=== PATIENT | female | born 1940 | race Caucasian/White ===

== ENCOUNTER 2021-02-12 10:08 | Outpatient (REF) | payer MEDICARE, SELFPAY ==
[2021-02-12 13:28] LABS: MANUAL DIFF FLAG NO
[2021-02-12 13:35] LABS: Basophils Absolute Auto 0.1 X10*3/uL (0.0-0.2); Basophils Percent Auto 1.4 % (0-2); Eosinophils Absolute Auto 0.3 X10*3/uL (0.0-0.4); Hematocrit 39.1 % (37-47); Hemoglobin 13.1 g/dl (12.0-16.0); Imm Gran Abs Auto 0.02 X10*3/uL (0.00-0.03); Imm Gran Pct Auto 0.4 % (0.0-0.4); Lymphocytes Absolute Auto 1.9 X10*3/uL (1.2-4.9); Lymphocytes Percent Auto 33.7 % (20-40); Mean Corpuscular HGB Conc 33.5 g/dl (31.0-35.0); Mean Corpuscular Hemoglobin 32.9 pg (27.0-33.0); Mean Corpuscular Volume 98.2 fL (80-98); Mean Platelet Volume 10.3 fL (9.4-12.3); Monocytes Absolute Auto 0.7 X10*3/uL (0.1-1.2); Monocytes Percent Auto 13.1 % (2-11); Neutrophils Absolute Auto 2.6 X10*3/uL (2.0-8.3); Neutrophils Percent Auto 46.4 % (45-73); Platelet Count 310 X10*3/uL (160-400); Red Blood Count 3.98 X10*6/uL (4.20-5.50); White Blood Count 5.6 X10*3/uL (4.8-10.8)
[2021-02-12 13:52] LABS: Alanine Aminotransferase 11 U/L (0-31); Albumin Level 3.9 g/dL (3.5-5.0); Alkaline Phosphatase 58 U/L (39-117); Anion Gap 11 (12-20); Aspartate Amino Transferase 20 U/L (5-31); Bilirubin Total 0.8 mg/dL (0.0-1.0); Blood Urea Nitrogen 19 mg/dL (9-16); Calcium 9.5 mg/dL (8.4-10.2); Carbon Dioxide 28 mmol/L (22-29); Chloride 102 mmol/L (96-108); Cholesterol 256 mg/dL; Estimated Glomerular Filt Rate 60; Glucose Fasting 87 mg/dL (60-99); HDL Cholesterol 97 mg/dL; LDL Cholesterol Calculated 143 mg/dl; Potassium 4.6 mmol/L (3.3-5.1); Sodium 136 mmol/L (135-145); Total Protein 6.1 g/dL (6.5-8.0); Triglycerides 80 mg/dL
[2021-02-12 14:09] LABS: Vitamin D 25-OH Total 18.6 ng/mL (>30)
== END 2021-02-12 10:09 | disposition home or self-care (01) ==
LOC: HO.10HDL 10:08
PROVIDERS: PCP Internal Medicine; Visit Provider Internal Medicine
DX: I10 Essential (primary) hypertension (principal); M19.90 Unspecified osteoarthritis, unspecified site; E78.00 Pure hypercholesterolemia, unspecified; Z96.653 Presence of artificial knee joint, bilateral
CPT/HCPCS: 36415; 80053; 80061; 82306; 85025

== ENCOUNTER 2021-05-07 11:25 | Outpatient (REF) | payer MEDICARE, SELFPAY ==
--- NOTE | ~2021-05-07 | MM_ITS ---
EXAMINATION: MM SCREENING DIGITAL BREAST TOMOSYNTHESIS, BILATERAL CLINICAL INFORMATION: Screening. Asymptomatic. The lifetime risk of breast cancer based on the Tyrer-Cuzick Model is 0.8%. COMPARISON: Mammography: March 05, 2020 and studies dating back to July 30, 2011 TECHNIQUE: Digital breast tomosynthesis is performed in both the craniocaudal and mediolateral oblique views along with computer-aided detection (CAD). Synthesized 2D images are generated from the tomosynthesis. FINDINGS: There are scattered areas of fibroglandular density (ACR BI-RADS breast composition Category b). There are no significant masses, abnormal calcifications, or other abnormalities. MM/MM tomosynthesis screening BI IMPRESSION: There are no significant changes from prior study. ASSESSMENT: BI-RADS 1: Negative RECOMMENDATION: Routine annual mammography screening. This patient's information was entered into a reminder system with a target due date for their next mammogram.
== END 2021-05-07 11:26 | disposition home or self-care (01) ==
LOC: HO.MAMMO 11:25
PROVIDERS: Visit Provider Internal Medicine
DX: Z12.31 Encounter for screening mammogram for malignant neoplasm of breast (principal)
CPT/HCPCS: 77063; 77067

== ENCOUNTER 2021-06-04 12:58 | Outpatient (RCR) | payer MEDICARE, SELFPAY | END 2021-06-22 11:08 | disposition home or self-care (01) | LOC: HO.WCC 12:58 | PROVIDERS: PCP Internal Medicine; Visit Provider Surgery | DX: L89.893 Pressure ulcer of other site, stage 3 (principal); I10 Essential (primary) hypertension; Z87.891 Personal history of nicotine dependence | CPT/HCPCS: 99212; 99213 ==

== ENCOUNTER 2021-12-02 11:15 | Outpatient (REF) | payer MEDICARE, SELFPAY ==
[2021-12-02 13:23] LABS: Anion Gap 14 (12-20); Blood Urea Nitrogen 21 mg/dL (9-16); Calcium 9.9 mg/dL (8.4-10.2); Carbon Dioxide 24 mmol/L (22-29); Chloride 101 mmol/L (96-108); Estimated Glomerular Filt Rate > 60; Glucose Random 92 mg/dL (60-115); Potassium 4.7 mmol/L (3.3-5.1); Sodium 134 mmol/L (135-145)
[2021-12-02 13:47] LABS: Vitamin D 25-OH Total 24.3 ng/mL (>30)
== END 2021-12-02 11:16 | disposition home or self-care (01) ==
LOC: HO.10HDL 11:15
PROVIDERS: Visit Provider Internal Medicine
DX: I10 Essential (primary) hypertension (principal); E55.9 Vitamin D deficiency, unspecified
CPT/HCPCS: 36415; 80048; 82306

== ENCOUNTER 2022-05-18 10:59 | Outpatient (REF) | payer MEDICARE, SELFPAY ==
--- NOTE | ~2022-05-18 | MM_ITS ---
EXAMINATION: MM SCREENING DIGITAL BREAST TOMOSYNTHESIS, BILATERAL CLINICAL INFORMATION: Screening. Asymptomatic. The lifetime risk of breast cancer based on the Tyrer-Cuzick Model is 1%. COMPARISON: Mammography: 05/07/2021, 03/23/2020, 09/13/2018 TECHNIQUE: Digital breast tomosynthesis is performed in both the craniocaudal and mediolateral oblique views along with computer-aided detection (CAD). Synthesized 2D images are generated from the tomosynthesis. FINDINGS: There are scattered areas of fibroglandular density (ACR BI-RADS breast composition Category b). There are no significant masses, abnormal calcifications, or other abnormalities. Parenchymal pattern is similar to prior studies. There is no developing density or architectural abnormality. The axilla and skin contours are unremarkable. No significant changes. MM/MM tomosynthesis screening BI IMPRESSION: No mammographic evidence of malignancy. ASSESSMENT: BI-RADS 1: Negative RECOMMENDATION: Routine annual mammography screening. This patient's information was entered into a reminder system with a target due date for their next mammogram.
== END 2022-05-18 11:00 | disposition home or self-care (01) ==
LOC: HO.MAMMO 10:59
PROVIDERS: PCP Internal Medicine; Visit Provider Internal Medicine
DX: Z12.31 Encounter for screening mammogram for malignant neoplasm of breast (principal)
CPT/HCPCS: 77063; 77067

== ENCOUNTER 2022-07-30 13:42 | Outpatient (REF) | payer MEDICARE, SELFPAY ==
--- NOTE | ~2022-07-30 | XR_ITS ---
EXAMINATION: XR KNEE, LEFT CLINICAL INFORMATION: Pain; question dislodged screw. COMPARISON: Radiograph dated 02/15/2018. TECHNIQUE: AP, lateral, tunnel, and sunrise views of the left knee. 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 No component migration. No joint effusion. XR/XR knee LT 4V IMPRESSION: Appropriate alignment of the left total knee arthroplasty without evidence of complications. No hardware failure or loosening is seen. The appearance is stable from 02/15/2018.
== END 2022-07-30 13:43 | disposition home or self-care (01) ==
LOC: HO.XRAY 13:42
PROVIDERS: PCP Internal Medicine; Visit Provider Internal Medicine
DX: I10 Essential (primary) hypertension (principal); M25.562 Pain in left knee
CPT/HCPCS: 73564

== ENCOUNTER 2023-02-22 11:46 | Outpatient (REF) | payer MEDICARE, SELFPAY ==
[2023-02-22 13:18] LABS: MANUAL DIFF FLAG NO
[2023-02-22 13:22] LABS: Basophils Absolute Auto 0.1 X10*3/uL (0.0-0.2); Basophils Percent Auto 1.7 % (0-2); Eosinophils Absolute Auto 0.3 X10*3/uL (0.0-0.4); Eosinophils Percent Auto 3.8 % (0-4); Hematocrit 39.9 % (37.0-47.0); Hemoglobin 13.6 g/dl (12.0-16.0); Imm Gran Abs Auto 0.01 X10*3/uL (0.00-0.03); Imm Gran Pct Auto 0.1 % (0.0-0.4); Lymphocytes Absolute Auto 3.3 X10*3/uL (1.2-4.9); Lymphocytes Percent Auto 47.4 % (20-40); Mean Corpuscular HGB Conc 34.1 g/dl (31.0-35.0); Mean Corpuscular Hemoglobin 33.1 pg (27.0-33.0); Mean Corpuscular Volume 97.1 fL (80.0-98.0); Mean Platelet Volume 10.6 fL (9.4-12.3); Monocytes Absolute Auto 0.7 X10*3/uL (0.1-1.2); Monocytes Percent Auto 10.4 % (2-11); Neutrophils Absolute Auto 2.6 x10*3/uL (2.0-8.3); Neutrophils Percent Auto 36.6 % (45-73); Platelet Count 294 X10*3/uL (160-400); Red Blood Count 4.11 X10*6/uL (4.20-5.50); Red Cell Distribution Width 13.5 % (11.0-16.0)
[2023-02-22 13:41] LABS: Alanine Aminotransferase 9 U/L (0-31); Albumin Level 3.8 g/dL (3.5-5.0); Alkaline Phosphatase 65 U/L (39-117); Anion Gap 10 (12-20); Aspartate Amino Transferase 21 U/L (5-31); Bilirubin Total 0.8 mg/dL (0.0-1.0); Blood Urea Nitrogen 15 mg/dL (9-16); Calcium 9.4 mg/dL (8.4-10.2); Carbon Dioxide 26 mmol/L (22-29); Chloride 103 mmol/L (96-108); Cholesterol 254 mg/dL (<200); Estimated Glomerular Filt Rate > 60; Glucose Fasting 89 mg/dL (60-99); HDL Cholesterol 103 mg/dL (>40); LDL Cholesterol Calculated 137 mg/dL (<100); Sodium 135 mmol/L (135-145); Total Protein 6.3 g/dL (6.5-8.0); Triglycerides 72 mg/dL (<150)
[2023-02-22 13:58] LABS: Vitamin D 25-OH Total 46.3 ng/mL (>30)
== END 2023-02-22 11:47 | disposition home or self-care (01) ==
LOC: HO.10HDL 11:46
PROVIDERS: Visit Provider Internal Medicine
DX: I10 Essential (primary) hypertension (principal); E78.00 Pure hypercholesterolemia, unspecified; E55.9 Vitamin D deficiency, unspecified
CPT/HCPCS: 36415; 80053; 80061; 82306; 85025

== ENCOUNTER 2023-05-30 13:15 | Outpatient (REF) | payer MEDICARE, SELFPAY ==
[2023-05-30 13:56] LABS: Influenza A PCR NEGATIVE (Negative); Influenza B PCR NEGATIVE (Negative); Resp Syncy Virus RNA Qual PCR NEGATIVE (Negative); SARS COV2 PCR INHOUSE NEGATIVE (Negative)
== END 2023-05-30 13:16 | disposition home or self-care (01) ==
LOC: HO.LNP 13:15
PROVIDERS: Visit Provider Internal Medicine
DX: R05.9 Cough, unspecified (principal); R50.9 Fever, unspecified; Z11.52 Encounter for screening for COVID-19
CPT/HCPCS: 0241U

== ENCOUNTER 2023-06-01 14:14 | Outpatient (REF) | payer MEDICARE, SELFPAY ==
--- NOTE | ~2023-06-01 | XR_ITS ---
EXAMINATION: XR CHEST CLINICAL INFORMATION: Cough COMPARISON: 07/31/2015 TECHNIQUE: 2 views of the chest were obtained. FINDINGS: Lungs are well expanded with mild flattening of the diaphragm secondary to emphysematous changes without nodules infiltrates or pleural effusion. Cardiomediastinal silhouette is unremarkable and there is moderate size hiatal hernia. XR/XR chest 2V IMPRESSION: No active cardiopulmonary disease. Emphysema and hiatal hernia
== END 2023-06-01 14:15 | disposition home or self-care (01) ==
LOC: HO.XRAY 14:14
PROVIDERS: PCP Internal Medicine; Visit Provider Internal Medicine
DX: R05.9 Cough, unspecified (principal); I10 Essential (primary) hypertension
CPT/HCPCS: 71046

== ENCOUNTER 2024-08-27 11:43 | Outpatient (REF) | payer MEDICARE, SELFPAY ==
[2024-08-27 12:58] LABS: MANUAL DIFF FLAG NO
[2024-08-27 13:03] LABS: Basophils Absolute Auto 0.1 X10*3/uL (0.0-0.2); Basophils Percent Auto 1.4 % (0-2); Eosinophils Absolute Auto 0.5 X10*3/uL (0.0-0.4); Eosinophils Percent Auto 5.7 % (0-4); Hematocrit 40.4 % (37.0-47.0); Hemoglobin 13.6 g/dl (12.0-16.0); Imm Gran Abs Auto 0.01 X10*3/uL (0.00-0.03); Imm Gran Pct Auto 0.1 % (0.0-0.4); Lymphocytes Absolute Auto 4.3 X10*3/uL (1.2-4.9); Lymphocytes Percent Auto 51.3 % (20-40); Mean Corpuscular HGB Conc 33.7 g/dl (31.0-35.0); Mean Corpuscular Hemoglobin 33.2 pg (27.0-33.0); Mean Corpuscular Volume 98.5 fL (80.0-98.0); Mean Platelet Volume 10.2 fL (9.4-12.3); Monocytes Absolute Auto 0.9 X10*3/uL (0.1-1.2); Monocytes Percent Auto 10.1 % (2-11); Neutrophils Absolute Auto 2.6 x10*3/uL (2.0-8.3); Neutrophils Percent Auto 31.4 % (45-73); Platelet Count 281 X10*3/uL (160-400); Red Cell Distribution Width 12.9 % (11.0-16.0); White Blood Count 8.4 X10*3/uL (4.8-10.8)
[2024-08-27 13:30] LABS: Alanine Aminotransferase 12 U/L (0-31); Albumin Level 3.8 g/dL (3.5-5.0); Alkaline Phosphatase 73 U/L (39-117); Anion Gap 10 (12-20); Aspartate Amino Transferase 28 U/L (5-31); Bilirubin Total 0.7 mg/dL (0.0-1.0); Blood Urea Nitrogen 16 mg/dL (9-16); Calcium 8.9 mg/dL (8.4-10.2); Carbon Dioxide 28 mmol/L (22-29); Chloride 101 mmol/L (96-108); Cholesterol 255 mg/dL (<200); Estimated Glomerular Filt Rate > 60; Glucose Fasting 88 mg/dL (60-99); HDL Cholesterol 102 mg/dL (>40); LDL Cholesterol Calculated 135 mg/dL (<100); Sodium 135 mmol/L (135-145); Total Protein 6.5 g/dL (6.5-8.0); Triglycerides 90 mg/dL (<150)
--- OUTSIDE RECORDS SUMMARY | 2024-08-27 13:34 | XMS_ITS | Patient Health Record ---
Author Organization [facility] Address [address] [place] [address] Care Team Providers Care Java Security Architect Name Role Phone Dipak Tinsley MD Primary Care Provider Unavaila Anna Marie Alcala Unavailable [phone] Curly Baer Unavailable [phone] Allergies No Known Allergies Reason For Referral No Information Medications Medication SIG (Take, Route, Frequency, Duration) Notes Start Date End Date Status Metoprolol Succinate ER 50 MG Oral for 90 Active Lisinopril 10 MG Oral for 90 A ctive Custom Orthotics as directed A ctive Advil as needed Active AFO-fixed . 1 . Wear daily for . 08/03/2017 Not-Taking LORazepam 1 MG (Schedule IV Drug) Oral for 30 Active Doxycycline Monohydrate 100 MG 1 capsule Orally Once a day for 10 days 06/03/2021 Not-Taking Immunizations Vaccine Route Administration Date Status Comme nts COVID-19 Pfizer BioNTech Vaccine Unknown 04/20/2021 Administered 1at 07/03/2021 2nd 07/25/2020 Influenza Unknown 05/20/2021 Refused Social History Tobacco Use: Social History Observation Description Date Details (start date - stop date) Never Smoker NA - NA Tobacco use other than smoking: Question Answer Notes Are you an other tobacco user? No Tobacco Control (Standard) Question Answer Notes Tobacco use: Nonsmoker Additional Findings: Tobacco non-user Current no nsmoker AUDIT-C (Standard) Question Answer Notes Did you have a drink containing alcohol in the p ast year? No Points 0 Interpretation Negative Problems Problem Type SNOMED Code ICD Code Onset Dates Problem Status W/U Status Risk Notes Problem Non-pressure chronic ulcer of other part of right foot with fat layer exposed (L97.512) Active confirmed Problem Chronic ulcer of foot (057097258) Non-pressure chronic ulcer of other part of left foot with fat layer exposed (L97.522) Active confirmed Problem Localized, primary osteoarthritis of the ankle and/or foot (920813764) Primary osteoarthritis, right ankle and foot (M19.071) Active confirmed Problem Localized, primary osteoarthritis of the ankle and/or foot () Primary osteoarthritis, left ankle and foot (M19.072) Active confirmed Problem Unspecified atherosclerosis of [place] arteries of extremities, bilateral legs (I70.203) Active confirmed Problem Acquired hammer toe of left foot (5077578867576221 ) Other hammer toe(s) (acquired), left foot (M20.42) Active confirmed Problem Atherosclerosis of [place] artery of both lower extremities, with unspecified presence of clinical manifestation (I70.203) Active confirmed Q7(A), Q8(2B), Q9(1B,2 C) Vital Signs Blood pressure diastolic 80 mm Hg 07/16/2024 Height 5 ft 4 in in 07/16/2024 Blood pressure systolic 130 mm Hg 07/16/2024 Weight 105 lbs 07/16/2024 BMI 18.02 kg/m2 07/16/2024 Procedures Procedure Date Ordered Date Performed Result Body Sit e 09448-LBHX SKIN LESIONS, 2 TO 4 04/11/2024 N/A 59013-UWYTTBT NAIL, 6 OR MORE 07/16/2024 N/A 19003-SXVY SKIN LESIONS, OVER 4 07/16/2024 N/A Encounters Encounter Location Date Provider Diagnosis [facility] [address] [address] 10/24/2023 Curly Baer Pain in left toe(s) M79.675 ; Tinea unguium B35.1 ; Pain in right toe(s) M79.674 ; Primary osteoarthritis, left ankle and foot M19.072 ; Primary osteoarthritis, right ankle and foot M19.071 ; 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 ; Unspecified atherosclerosis of [place] arteries of extremities, bilateral legs I70.203 and Other hammer toe(s) (acquired), left foot M20.[address] [facility] [address] 01/18/2024 Curly Baer Pain in left toe(s) M79.675 ; Tinea unguium B35.1 ; Pain in right toe(s) M79.674 ; Primary osteoarthritis, left ankle and foot M19.072 ; Primary osteoarthritis, right ankle and foot M19.071 ; 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 ; Unspecified atherosclerosis of [place] arteries of extremities, bilateral legs I70.203 and Other hammer toe(s) (acquired), left foot M20.[address] [address] 04/11/2024 Curly Baer Pain in left toe(s) M79.675 ; Tinea unguium B35.1 ; Pain in right toe(s) M79.674 ; Primary osteoarthritis, left ankle and foot M19.072 ; Primary osteoarthritis, right ankle and foot M19.071 ; 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 ; Unspecified atherosclerosis of [place] arteries of extremities, bilateral legs I70.203 and Other hammer toe(s) (acquired), left foot M20.[address] [address] 07/16/2024 Anna Marie Monterroso Atherosclerosis of [place] artery of both lower extremities, with unspecified presence of clinical manifestation I70.203 ; Tinea unguium B35.1 ; Pain in right toe(s) M79.674 and Pain in left toe(s) M79.675 Assessments Encounter Date Diagnosis (ICD Code) Assessment Notes Treatment Notes Treatment Clinical Notes Section Notes 10/24/2023 Tinea unguium (ICD-10 - B35.1) 10/24/2023 Pain in left toe(s) (ICD-10 - M79.675) 01/18/2024 Pain in left toe(s) (ICD-10 - M79.675) 04/11/2024 Tinea unguium (ICD-10 - B35.1) 04/11/2024 Pain in left toe(s) (ICD-10 - M79.675) 07/16/2024 Atherosclerosis of [place] artery of both lower extremities, with unspecified presence of clinical manifestation (ICD-10 - I70.203) Q7(A), Q8(2B), Q9(1B,2C) 07/16/2024 Tinea unguium (ICD-10 - B35.1) 04/11/2024 Pain in right toe(s) (ICD-10 - M79.674) 01/18/2024 Tinea unguium (ICD-10 - B35.1) 10/24/2023 Pain in right toe(s) (ICD-10 - M79.674) 01/18/2024 Pain in right toe(s) (ICD-10 - M79.674) 10/24/2023 Primary osteoarthritis, left ankle and foot (ICD-10 - M19.072) 04/11/2024 Primary osteoarthritis, left ankle and foot (ICD-10 - M19.072) 07/16/2024 Pain in right toe(s) (ICD-10 - M79.674) 07/16/2024 Pain in left toe(s) (ICD-10 - M79.675) 04/11/2024 Primary osteoarthritis, right ankle and foot (ICD-10 - M19.071) 01/18/2024 Primary osteoarthritis, left ankle and foot (ICD-10 - M19.072) 10/24/2023 Primary osteoarthritis, right ankle and foot (ICD-10 - M19.071) 01/18/2024 Primary osteoarthritis, right ankle and foot (ICD-10 - M19.071) 10/24/2023 Dropfoot (ICD-10 - M21.379) 04/11/2024 Dropfoot (ICD-10 - M21.379) 04/11/2024 Unspecified atherosclerosis of [place] arteries of extremities, bilateral legs (ICD-10 - I70.203) 01/18/2024 Dropfoot (ICD-10 - M21.379) 10/24/2023 Unspecified atherosclerosis of [place] arteries of extremities, bilateral legs (ICD-10 - I70.203) 10/24/2023 Other hammer toe(s) (acquired), left foot (ICD-10 - M20.42) 01/18/2024 Unspecified atherosclerosis of [place] arteries of extremities, bilateral legs (ICD-10 - I70.203) 04/11/2024 Other hammer toe(s) (acquired), left foot (ICD-10 - M20.42) 01/18/2024 Other hammer toe(s) (acquired), left foot (ICD-10 - M20.42) Plan Of Treatment Pending Test Test Name Order Date X ray : Ankle, left 2V 07/08/2015 X ray : Foot, left 2V 07/08/2015 X ray : Foot, right 2V 07/08/2015 X ray : Foot, left 3V 06/03/2021 28211-UWMGYNY NAIL, 6 OR MORE 07/16/2024 15945-JDQEEHU NAIL, 6 OR MORE 08/03/2017 48126-MWAUMFQ NAIL, -5 03/16/2017 25939-HSXWGRR NAIL, -5 12/15/2016 97229-WBDORNK NAIL, -5 11/23/2017 07953-UBOEBCM NAIL, -5 02/22/2018 04056-VFIPSPC NAIL, -5 07/08/2015 20984-KMWQQOH NAIL, -5 09/17/2015 71027-AFYWCLL NAIL, -5 12/17/2015 03578-FWCSBFV NAIL, -5 03/17/2016 08493-VLAFGVJ NAIL, -5 06/16/2016 09354-RSSZLVV NAIL, -5 09/15/2016 91367-MYNWLGQ NAIL, -05/17/2018 77516-JXAZDQL SKIN/TISSUE 06/03/2021 40977-WZYRQMN SKIN/TISSUE 06/12/2021 15581-SVVN SKIN LESIONS, OVER 4 09/15/19 22 16604-VTPT SKIN LESIONS, OVER 4 11/20/19 21 30429-IYDL SKIN LESIONS, OVER 4 02/13/20 21 04632-UCZP SKIN LESIONS, OVER 4 07/16/19 25 39693-OVNU SKIN LESIONS, OVER 4 05/20/20 21 41107-UQVO SKIN LESIONS, OVER 4 01/13/20 23 83475-VWWP SKIN LESIONS, OVER 4 09/07/19 19 75013-KSRV SKIN LESIONS, OVER 4 02/01/20 19 69346-AXJH SKIN LESIONS, OVER 4 05/16/20 19 50617-PFFF SKIN LESIONS, OVER 4 08/29/19 20 42527-OVRO SKIN LESIONS, OVER 4 11/28/19 20 05760-QLIF SKIN LESIONS, OVER 4 02/27/20 20 86056-IMJB SKIN LESIONS, OVER 4 06/18/20 20 53581-QDTF SKIN LESIONS, OVER 4 09/11/19 21 33719-AJXR SKIN LESIONS, OVER 4 09/16/19 17 85779-UKJJ SKIN LESIONS, OVER 4 06/16/20 16 28034-BKHX SKIN LESIONS, OVER 4 03/17/20 16 99682-EFXQ SKIN LESIONS, OVER 4 12/17/19 16 10166-XADW SKIN LESIONS, OVER 4 02/23/20 18 59335-ELPZ SKIN LESIONS, OVER 4 05/17/20 18 47691-TJBG SKIN LESIONS, OVER 4 08/03/19 18 53233-MPZA SKIN LESIONS, OVER 4 11/24/19 18 08263-EJQC SKIN LESIONS, OVER 4 12/16/19 17 68210-PTGV SKIN LESIONS, OVER 4 03/16/20 17 05550-AYST SKIN LESIONS, 2 TO 4 09/17/19 16 17118-ZPKO SKIN LESIONS, 2 TO 4 07/08/19 16 06687-OPWA SKIN LESIONS, 2 TO 4 04/11/20 24 59289-EWQM NAIL(S) 07/08/2015 46767-EKFA NAIL(S) 09/17/2015 00770-QWFH NAIL(S) 12/17/2015 59542-AEPE NAIL(S) 03/17/2016 04755-WQRG NAIL(S) 06/16/2016 69390-ACKK NAIL(S) 09/15/2016 91480-YDLO NAIL(S) 12/15/2016 11308-GJLF NAIL(S) 03/16/2017 32514-DLHB NAIL(S) 08/03/2017 92945-NIBH NAIL(S) 11/23/2017 D8403-ZGXDXWAZ DYSTROPHIC NAILS ANY # M4642-UJYSXVGE DYSTROPHIC NAILS ANY # H9220-RSPESXZQ DYSTROPHIC NAILS ANY # X2612-WOGMBHDZ DYSTROPHIC NAILS ANY # V3999-FCIACOUG DYSTROPHIC NAILS ANY # V1824-NAKECRGZ DYSTROPHIC NAILS ANY # C8521-AMQQTSUF DYSTROPHIC NAILS ANY # K9760-FJAVJRRZ DYSTROPHIC NAILS ANY # F9315-NUHVTTJS DYSTROPHIC NAILS ANY # K0768-HUJXYAGT DYSTROPHIC NAILS ANY # N2676-YKGWULXE DYSTROPHIC NAILS ANY # U8338-NCJCBKWX DYSTROPHIC NAILS ANY # E2234-DUQEJRAU DYSTROPHIC NAILS ANY # Next Appt Details Provider Name:Anna Marie donaldson, 11/07/2024 02:45:00 PM, [address] [place], [address], Insurance Providers Payer Name Payer Address Payer Phone Subscriber Number Group Number Insured Name Patient Relationship to Insured Coverage Start Date Coverage End Date Medicare National [facility] [employer] [address] [facility] [place] [address] [id number] Geena German Self - patient is the insured 4 [employer] [address] [place] [address] [phone] [id number] Geena German Self - patient is the insured Medical (General) History Medical History History ICD Code Anxiety Arthritis Glaucoma High blood pressure Spina bifida Measles Mumps Chicken pox Joint implants/screws Surgical History Surgery Date(Month/Year) spine surgery - Spina Bifida 1941 knee surgery, left 2012 knee surgery, right 2012 left hip replacement 1996 hernia 07/31/2015 Hospitalization History Reason Date[place] [facility] [place] [facility] [place] head and broken ribs 05/2017
--- OUTSIDE RECORDS SUMMARY | 2024-08-27 13:34 | XMS_ITS ---
Author Organization [facility] Address [address] [place] [address] Care Team Providers Care Stable Cleaner Name Role Phone Dipak Tinsley MD Primary Care Provider UnavailAnna Marie Dudley Unavailable [phone] Curly Baer Unavailable [phone] Allergies No Known Allergies REASON FOR VISIT Painful thick toenails which are aggrevated by shoes and causes difficulty standing/walking Medications Medication SIG (Take, Route, Frequency, Duration) Notes Start Date End Date Status Advil as needed Active AFO-fixed . 1 . Wear daily for . 08/03/2017 Not-Taking Custom Orthotics as directed A ctive Metoprolol Succinate ER 50 MG Oral for 90 Active Lisinopril 10 MG Oral for 90 A ctive Doxycycline Monohydrate 100 MG 1 capsule Orally Once a day for 10 days 06/03/2021 Not-Taking LORazepam 1 MG (Schedule IV Drug) Oral for 30 Active Social History Tobacco Use: Social History Observation Description Date Details (start date - stop date) Former Smoker NA - NA Tobacco Use/Smoking Question Answer Notes Are you a: former smoker Additional Findings: Tobacco Non-User Current no n-smoker Alcohol Screen Question Answer Notes Did you have a drink contain ing alcohol in the past year? Yes How often did you have a dri nk containing alcohol in the past year? 4 or more times a week (4 points) Points 4 Interpretation Positive Tobacco use other than smoking: Question Answer Notes Are you an other tobacco user? No Vital Signs Height 5 ft 4 in in 04/11/2024 Weight 105 lbs 04/11/2024 BMI 18.02 kg/m2 04/11/2024 Blood pressure systolic 130 mm Hg 04/11/20 Blood pressure diastolic 80 mm Hg 024 Procedures Procedure Date Ordered Date Performed Result Body Sit e 96354-OILI SKIN LESIONS, 2 TO 4 04/11/2024 N/A Encounters Encounter Location Date Provider Diagnosis [facility] [address] [address] 04/11/2024 Curly Baer Pain in left toe(s) M79.675 ; Tinea unguium B35.1 ; Pain in right toe(s) M79.674 ; Primary osteoarthritis, left ankle and foot M19.072 ; Primary osteoarthritis, right ankle and foot M19.071 ; 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 ; Unspecified atherosclerosis of te-mo[place] arteries of extremities, bilateral legs I70.203 and Other hammer toe(s) (acquired), left foot M20.42 Assessments Encounter Date Diagnosis (ICD Code) Assessment Notes Treatment Notes Treatment Clinical Notes Section Notes 04/11/2024 Pain in left toe(s) (ICD-10 - M79.675) 04/11/2024 Tinea unguium (ICD-10 - B35.1) 04/11/2024 Pain in right toe(s) (ICD-10 - M79.674) 04/11/2024 Primary osteoarthritis, left ankle and foot (ICD-10 - M19.072) 04/11/2024 Primary osteoarthritis, right ankle and foot (ICD-10 - M19.071) 04/11/2024 Dropfoot (ICD-10 - M21.379) 04/11/2024 Unspecified atherosclerosis of te-moak arteries of extremities, bilateral legs (ICD-10 - I70.203) 04/11/2024 Other hammer toe(s) (acquired), left foot (ICD-10 - M20.42) Plan Of Treatment Medication Medication Name Sig Start Date Stop Date Notes Custom Orthotics as directed Pending Test Test Name Order Date 96944-EMBV SKIN LESIONS, 2 TO 4 04/11/20 24 Next Appt Details Follow Up: 2 Months, Reason: Provider Name:Anna Marie donaldson, 11/07/2024 02:45:00 PM, [address] [place] [address], [id number], Procedure Notes * Category Sub-Category Detail Notes Keratoma Treatment Parring or Cutting o f Benign Hyperkeratotic Lesion(s) 73037 ( >4 Lesions) - The Benign hyperkeratotic lesions, as described above were pared, and/or cut utilizing a sterile #15 blade, tissue nippers, and/or dremel, Q8 Debride Nails 1-5 Procedure: Nail debrideme nt performed extensively to reduce/remove overall nail length and girth, subungual debris, and necrotic tissue, by manual and electrical means by use of a nail nipper and/or dremel, to more viable healthy nail plate or bed tissue 1-5. Silver nitrate used for any petechial bleeding as necessary. Patient chooses, no pharmaceutical tx (40248) Nail Reduction Nail Reduction Trimming of dyst rophic nails performed to reduce/remove overall nail length and girth, by manual and electrical means with use of a nail nipper and/or dremel, to more viable healthy nail plate or bed tissue 6-10 (G0127) Progress Notes * Geena GERMAN GDOB:05/1941 (83 yo F)Acc No.[id number]:04/11/2024 Progress Note Patient:?Geena German Sunshine Provider:?Curly Baer DPM :1940???Age:83 Y???Sex:Female D ate:04/11/2024 Address:[address] [place], [place] [id number] Pcp:Dipak Tinsley MD Subjective: * Chief Complaints: * ???Painful thick toenails wh ich are aggrevated by shoes and causes difficulty standing/walking * HPI: ???Painful Nails:?Pt States Last PCP Visit:?Date:?12/03/2023 ???Toe pain:?Nature:?tenderness, aching.?Location:?Great toe, Left foot.?Duration:?several months.?Foot Pain:?Nature:?aching, sharp.?Location:?Bottom, Outside, Forefoot, LEFT.?Duration:?several years.?Course:?worse.?Aggravated:?any pressure, standing, walking.?Severity/Quality:?moderate, severe.? * ROS:?General/Constitutional:?Nausea?denies.?Vomiting?denies.?Hunger Thirst?denies.?Loss appetite?denies.?Chills?denies.?Fatigue?denies.?Fever?denies.?Night Sweats?denies.?Unexplained weight loss?denies.?Unexplained weight gain?denies.?HEENTM:?Dentures?denies.?Dizziness?denies.?Glasses/contacts?admits.?Retinopathy?de nies.?Blurred/double vision?denies.?TMJ?denies.?Discharge/drainage?denies.?Implants?denies.?Sore throat?denies.?Dental implants?denies.?Hard of hearing ?denies.?Difficulty chewing/swallowing/speaking?denies.?Nose bleeds?denies.?Sore mouth?denies.?Respiratory:?On Oxygen?denies.?Pneumonia/pleurisy?denies.?Bronchitis?denies.?Emphysema?denies.?C oughing?denies.?Cough blood?denies.?Shortness of breath?denies.?Wheezing?denies.?Cardiovascular:?Pacemaker?denies.?MVP?denies.?WPW?denies.?CHF?denies.?Heart attack?denies.?Septal defect?denies.?Rapid beat?denies.?Chest pain ?denies.?Atrial Fib.?denies.?Murmur/Palpitations?denies.?Gastrointestinal:?Hemorrhoids?denies.?Stomach/Abdominal pain?denies.?Dark blood stool?denies.?Irritable bowel ?denies.?Constipation?denies.?Diarrhea?denies.?Hematology:?Swelling?denies.?Clots?denies.?Varicose Veins?denies.?Bruising?denies.?Bleeding problem?denies.?Genitourinary:?Blood urine?denies.?Frequent/Painfu/urination/bladder control?denies.?Kidney stones?denies.?Infection (UTI)?denies.?Nephropathy?denies.?sex trans dis (STD)?denies.?Prostate?denies.?Musculoskeletal:?Hammertoes?admits.?Bunions?admits.?Back Pain?denies.?Muscle Cramps/ Resting?denies.?Muscle cramps / walking?denies.?Generalized aches and pains?denies.?Weakness?denies.?Integ.:?Krause?denies.?Scars?denies.?Corns/calluses?admits.?Ingrown nails?denies.?Painful nails?denies.?Open Sores?denies.?Rashes?denies.?Neurologic:?Difficulty sleeping?denies.?Brain disorder?denies.?Numbness?denies.?Balance trouble?denies.?Confusion?denies.?Fainting/blackouts?denies.?Tingling?denies.?Tr emors?denies.? * Medical History:? * Surgical History:?spine surg emily - Spina Bifida 194knee surgery, left 2012knee surgery, right 2013left hip replacement 1996hernia 07/31/2015 * Hospitalization/Major Diagno stic Procedure:?[facility] fall/stables on her head and broken ribs 05/2017[facility]- Fell at work 05/03/18 * Family History:?Mother: dece ased, diagnosed with Family history of arthritis, Unspecified essential hypertension.?Father: , diagnosed with Family history of arthritis, Unspecified essential hypertension, Other malignant neoplasm of unspecified site.?Spouse: .? * Social History:?Tobacco Use:?Tobacco Use/Smoking?Are you a:?former smoker ?Additional Findings: Tobacco Non-User?Current non-smoker ?Tobacco use other than smoking?Are you an other tobacco user??No ???Drugs/Alcohol:?Drugs?Have you used drugs other than those for medical reasons in the past 12 months??No ?Alcohol Screen?Did you have a drink containing alcohol in the past year??Yes ?How often did you have a drink containing alcohol in the past year??4 or more times a week (4 points) ?Points?4 ?Interpretation?Positive ???Miscellaneous:?Caffeine: yes, 1-2 cups per day. ?Children: yes, four, 3 living. ?Exercise: yes, physical therapy. ?Marital status: . 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 * Medications:?TakingAdvil , N otes: as neededCustom Orthotics as directed Metoprolol Succinate ER 50 MG Tablet Extended Release 24 Hour Oral Lisinopril 10 MG Tablet Oral LORazepam 1 MG Tablet (Schedule IV Drug) Oral Taking Advil , Notes: as neededTaking Custom Orthotics as directed Taking Metoprolol Succinate ER 50 MG Tablet Extended Release 24 Hour Oral Taking Lisinopril 10 MG Tablet Oral Taking LORazepam 1 MG Tablet (Schedule IV Drug) Oral Not-Taking/PRNDoxycycline Monohydrate 100 MG Capsule 1 capsule Orally Once a dayAFO-fixed . Ankle-Foot Orthotic 1 . Wear dailyMedication List reviewed and reconciled with the patientNot-Taking/PRN Doxycycline Monohydrate 100 MG Capsule 1 capsule Orally Once a dayNot-Taking/PRN AFO-fixed . Ankle-Foot Orthotic 1 . Wear dailyMedication List reviewed and reconciled with the patient * Allergies:?N.K.D.A.yes[Aller gies Verified] Objective: * Vitals:?Ht: 5 ft 4 in, Wt: 1 05, BMI: 18.02, Shoe size: 7-8, BP: 130/80 mm Hg, Wt-k.63 kg. * Examination: ???General Examination: ?GENERAL APPEARANCE:?pleasant, alert, well nourished, well developed, well hydrated, with good attention to hygene/body habitus, and in no acute distress.?ORIENTED:?person,place, and time.?Nails: ?NAILS are:?Elongated, overgrown, dystrophic, greater than 3mm thick, discolored and friable with crumbly malodorous subungual debris, with pain on palpation, T5, T6, T7 , remaining nails are elongated, overgrown, dystrophic.?Neurological: ?SENSORY:?Neurological exam is normal, pain sensation normal, vibration sensation intact, pinprick sensation is normal in the lower extremities, denies, tingling, burning, anesthesia, paresthesia, hyperesthesia, B/L.?TINEL'S COMPRESSION:?Negative tarsal tunnel, phi pedis, and medial calcaneal nerves B/L.?BABINSKI REFLEX:?absent.?Neuroma Pain: ?PALPATION:?No interspace pain noted on palpation.?Vascular: ?DP PULSES(B):?0/4, LEFT, 1/4, RIGHT.?PT PULSES(B):?0/4, LEFT, 2/4, RIGHT.?Orthopedic: ?MUSCLE STRENGTH:?5/5 all groups in a symmetrical fashion , B/L.?FOOT MORPHOLOGY:? Pes Cavus structure left with dropfoot,equinus and adducto-varus deviation left foot and ankle; severe dorsal subluxation left first mtpj with unreducable ehl contracture left.?DIGITAL DEFORMITIES:? Digital contracture, PIPJ, 2-5 B/L, incompl- reducable to push-up test, no over, nor underlapping-left foot is very advanced; severe dorsal contracture left first mtpj and ehl tendon .?Dermatologic: ?SKIN FINDINGS:? Skin exam reveals Keratotic lesion(s) located at, SUB MTH (s), 3, 5, Left.? Assessment: * Assessment: 1.?Tinea unguium - B35.1?2.? Pain in left toe(s) - M79.675 (Primary)?3.?Pain in right toe(s) - M79.674?4.?Primary osteoarthritis, left ankle and foot - M19.072?5.?Primary osteoarthritis, right ankle and foot - M19.071?6.?Dropfoot - M21.379?7.?Unspecified atherosclerosis of te-[place] arteries of extremities, bilateral legs - I70.203?8.?Other hammer toe(s) (acquired), left foot - M20.42? Plan: * Treatment: 2.?Unspecified atheroscleros is of te-mo[place] arteries of extremities, bilateral legs?Procedure: 22579-BVUD SKIN LESIONS, 2 TO 4 * Procedures:?Debride Nails 1-5:?Procedure:?Nail debridement performed extensively to reduce/remove overall nail length and girth, subungual debris, and necrotic tissue, by manual and electrical means by use of a nail nipper and/or dremel, to more viable healthy nail plate or bed tissue 1-5. Silver nitrate used for any petechial bleeding as necessary. Patient chooses, no pharmaceutical tx (10718).?Keratoma Treatment:?Parring or Cutting of Benign Hyperkeratotic Lesion(s)?69774 ( >4 Lesions) - The Benign hyperkeratotic lesions, as described above were pared, and/or cut utilizing a sterile #15 blade, tissue nippers, and/or dremel, Q8.?Nail Reduction:?Nail Reduction?Trimming of dystrophic nails performed to reduce/remove overall nail length and girth, by manual and electrical means with use of a nail nipper and/or dremel, to more viable healthy nail plate or bed tissue 6-10 (G0127).? * Procedure Codes:?11072 DEBRI DE NAIL, 1-5, Modifiers: Q8 G0127 TRIMMING DYSTROPHIC NAILS ANY #, Modifiers: Q8 87873 TRIM SKIN LESIONS, 2 TO 4, Modifiers: Q8 * Follow Up:?2 Months * Images: * Sign off status: Completed true * Provider:?Curly Baer DPM Date:? 024 Generated for Printmelvi hallman/Faralphg/eTransmitting on:?08/27/2024 01:33 PM EST History and Physical Notes * HPI (History of Present Illness) Category Sub-Category Detail Notes Category Not es Toe pain Nature: tenderness, aching Location: Great toe, Left foot Duration: several months Painful Nails Pt States Last PCP Visit: Date:: 12/03/2023 Foot Pain Nature: aching, sharp Location: Bottom, Outside, For efoot, LEFT Duration: several years Course: worse Aggravated: any pressure, standi ng, walking Severity/Quality: moderate, severe Examination Category Sub-Category Detail Notes Category Not es Neuroma Pain PALPATION: No interspace pain noted on palpation Neurological SENSORY: Neurological exa m is normal, pain sensation normal, vibration sensation intact, pinprick sensation is normal in the lower extremities, denies, tingling, burning, anesthesia, paresthesia, hyperesthesia, B/L BABINSKI REFLEX: absent TINEL'S COMPRESSION: Negative tarsal steve sam, phi pedis, and medial calcaneal nerves B/L Dermatologic SKIN FINDINGS: Skin exam reveal s Keratotic lesion(s) located at, SUB MTH (s), 3, 5, Left Orthopedic FOOT MORPHOLOGY: Pes Cavus struc ture left with dropfoot,equinus and adducto-varus deviation left foot and ankle; severe dorsal subluxation left first mtpj with unreducable ehl contracture left DIGITAL DEFORMITIES: Digital contracture , PIPJ, 2-5 B/L, incompl-reducable to push-up test, no over, nor underlapping-left foot is very advanced; severe dorsal contracture left first mtpj and ehl tendon MUSCLE STRENGTH: 5/5 all groups in a symmetrical fashion , B/L General Examination GENERAL APPEARANCE: pleasant , alert, well nourished, well developed, well hydrated, with good attention to hygene/body habitus, and in no acute distress ORIENTED: person,place, and ti me Vascular DP PULSES (B): 0/4, LEFT, 1/4, RIGHT PT PULSES (B): 0/4, LEFT, 2/4, RIGH T Nails NAILS are: Elongated, overg rown, dystrophic, greater than 3mm thick, discolored and friable with crumbly malodorous subungual debris, with pain on palpation, T5, T6, T7 , remaining nails are elongated, overgrown, dystrophic
--- OUTSIDE RECORDS SUMMARY | 2024-08-27 13:34 | XMS_ITS ---
Author Organization [facility] Pedro aubree Walker Address [address] [facility] [place] [address] Care Team Providers Care Chief Concierge Name Role Phone Dipak Tinsley MD Primary Care Provider Anna Marie Connell Unavailable [phone] Allergies No Known Allergies REASON FOR VISIT At Risk Footcare, Painful Nail(s) aggravated by shoes and causing difficulty standing/walking. Medications Medication SIG (Take, Route, Frequency, Duration) Notes Start Date End Date Status Metoprolol Succinate ER 50 MG Oral for 90 Active Lisinopril 10 MG Oral for 90 A ctive AFO-fixed . 1 . Wear daily for . 08/03/2017 Not-Taking LORazepam 1 MG (Schedule IV Drug) Oral for 30 Active Doxycycline Monohydrate 100 MG 1 capsule Orally Once a day for 10 days 06/03/2021 Not-Taking Custom Orthotics as directed A ctive Advil as needed Active Social History Tobacco Use: Social History [...] Problem Status W/U Status Risk Notes Problem Atherosclerosis of [place] artery of both lower extremities, with unspecified presence of clinical manifestation (I70.203) Active confirmed Q7(A), Q8(2B), Q9(1B,2C) Vital Signs Height 5 ft 4 in in 07/16/2024 Weight 105 lbs 07/16/2024 BMI 18.02 kg/m2 07/16/2024 Blood pressure systolic 130 mm Hg 07/16/19 25 Blood pressure diastolic 80 mm Hg 025 Procedures Procedure Date Ordered Date Performed Result Body Sit e 16428-XTHXOHT NAIL, 6 OR MORE 07/16/2024 N/A 86826-FBDZ SKIN LESIONS, OVER 4 07/16/2024 N/A Encounters Encounter Location Date Provider Diagnosis [facility] [place] [address] [place] [address] 07/16/2024 Anna Marie Monterroso Atherosclerosis of [place] artery of both lower extremities, with unspecified presence of clinical manifestation I70.203 ; Tinea unguium B35.1 ; Pain in right toe(s) M79.674 and Pain in left toe(s) M79.675 Assessments Encounter Date Diagnosis (ICD Code) Assessment Notes Treatment Notes Treatment Clinical Notes Section Notes 07/16/2024 Atherosclerosis of [place] artery of both lower extremities, with unspecified presence of clinical manifestation (ICD-10 - I70.203) Q7(A), Q8(2B), Q9(1B,2C) 07/16/2024 Tinea unguium (ICD-10 - B35.1) 07/16/2024 Pain in right toe(s) (ICD-10 - M79.674) 07/16/2024 Pain in left toe(s) (ICD-10 - M79.675) Plan Of Treatment Pending Test Test Name Order Date 92168-FDSTQFE NAIL, 6 OR MORE 07/16/2024 21251-ZKAQ SKIN LESIONS, OVER 4 07/16/19 25 Next Appt Details Follow Up: 3 Months, Reason: Provider Name:Anna Marie donaldson, 11/07/2024 02:45:00 PM, [address] [place], [address], Procedure Notes * Category Sub-Category Detail Notes Debride Nail 6-10 Nail debridement Due to the cl inical pathology outlined in the exam findings, performance of this nail treatment is medically necessary as its management by an unskilled/untrained nonprofessional would put this patients foot and overall health at risk. Therefore, debridement to affected nail(s), as described in exam ( T1, T2, T3, T4, T6, T7, T8, T9 ), was performed exclusively by the physician of record to reduce/remove overall nail length, girth, thickness, subungual debris, and necrotic tissue, by manual and/or electrical means through the use of a nail nipper and/or dremel-type grinder and plater, to a more viable healthy nail plate or bed tissue 6-10 nails in total. Silver nitrate was used for any petechial bleeding as necessary. Definitive antifungal treatment options, both pharmaceutical and surgical, have been reviewed and discussed with the patient. The patient solely prefers the use of intermittent/as needed professional debridement services for their nail condition and understands the need for additional periodic treatments to maintain effectiveness in symptomatic relief - 00973 Keratoma Treatment Parring or Cutting o f Benign Hyperkeratotic Lesion(s) (-57) More than 4 Lesions - Due to the at risk nature of the patients medical condition as documented in the exam findings, performance of this keratoderma treatment is medically necessary as its management by an unskilled/untrained nonprofessional would put this patients foot and overall health at risk. Therefore, the benign hyperkeratotic lesions, ( 5 ) in total, locations as stated and described in the exam ( sub 5th metatarsal head B/L, sub 1st metatarsal head, Left, medial IPJ TA, T5), were pared, and/or cut utilizing a sterile 15 blade, tissue nippers, and/or power dremel instrumentation by the physician of record - 30847, Q8 Progress Notes * Geena GERMAN GDOB:05/1941 (83 yo F)Acc No.[id number]:07/16/2024 Progress Note Patient:?GERMANGeena Provider:?Anna Marie Monterroso DPM :1940???Age:83 Y???Sex:Female D ate:07/16/2024 Address:[address] [place], [place] [address] Pcp:Dipak Tinsley MD Subjective: * Chief Complaints: * ???At Risk FootcarePainful N ail(s) aggravated by shoes and causing difficulty standing/walking. * HPI: ???At Risk footcare:?Pt States Last PCP Visit:?Date?05/04/2024 * ROS:?General/Constitutional:?Nausea?denies.?Vomiting?denies.?Hunger Thirst?denies.?Loss appetite?denies.?Chills?denies.?Fatigue?denies.?Fever?denies.?Night Sweats?denies.?Unexplained weight loss?denies.?Unexplained [...] Surgical History:?spine surg emily - Spina Bifida 1941knee surgery, left 2012knee surgery, right 2013left hip replacement 1996hernia 07/31/2015 * Hospitalization/Major Diagno stic Procedure:[place] [place] and [place] [place] Fell at work 05/03/18 * Family History:?Mother: dece ased, diagnosed with Unspecified essential hypertension, Family history of arthritis.?Father: , diagnosed with Other malignant neoplasm of unspecified site, Unspecified essential hypertension, Family history of arthritis.?Spouse: .? * Social History:?Tobacco Use:?Tobacco use other than smoking?Are you an other tobacco user??No ?Tobacco Control (Standard)?Tobacco use:?Nonsmoker ?Additional Findings: Tobacco non-user?Current nonsmoker ???Drugs/Alcohol:?Drugs?Have you used drugs other than those for medical reasons in the past 12 months??No ???Miscellaneous:?Caffeine: yes, 1-2 cups per day. ?Children: yes, four, 3 living. ?Exercise: yes, physical therapy. ?Marital status: . 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 ???Drug/Alcohol:?AUDIT-C (Standard)?Did you have a drink containing alcohol in the past year??No ?Points?0 ?Interpretation?Negative * Medications:?TakingCustom Or thotics as directed Advil , Notes to Pharmacist: as neededMetoprolol Succinate ER 50 MG Tablet Extended Release 24 Hour Oral Lisinopril 10 MG Tablet Oral LORazepam 1 MG Tablet (Schedule IV Drug) Oral Taking Custom Orthotics as directed Taking Advil , Notes to Pharmacist: as neededTaking Metoprolol Succinate ER 50 MG Tablet Extended Release 24 Hour Oral Taking Lisinopril 10 MG Tablet Oral Taking LORazepam 1 MG Tablet (Schedule IV Drug) Oral Not-Taking/PRNDoxycycline Monohydrate 100 MG Capsule 1 capsule Orally Once a day AFO-fixed . Ankle-Foot Orthotic 1 . Wear daily Medication List reviewed and reconciled with the patientNot-Taking/PRN Doxycycline Monohydrate 100 MG Capsule 1 capsule Orally Once a day Not-Taking/PRN AFO-fixed . Ankle-Foot Orthotic 1 . Wear daily Medication List reviewed and reconciled with the patient * Allergies:?N.K.D.A.yes[Aller gies Verified] Objective: * Vitals:?Ht: 5 ft 4 in, Wt:10 5, BMI: 18.02, Shoe size:7-8, BP:130/80mm Hg, Wt-k.63 kg. * Examination: ???Vascular: ?DP PULSES (B):? 0/4, B/L.?PT PULSES (B):? 0/4, B/L.?CAPILLARY FILL TIME:? delayed, all digits, B/L.?TROPHIC CONDITION-TEXTURE/ELASTICITY/TURGOR/HAIR GROWTH (B):? decreased, fragile, thin, shiny skin, with sparse to absent hair growth, B/L.?TEMPERTURE GRADIENT (C):? decreased, cool to cool, proximal to distal, B/L.?PIGMENTATION:?mottled, B/L.?EDEMA (C):?absent, B/L.?CLAUDICATION (C):?denies, B/L.?REST PAIN:?denies, B/L.?PARESTHESIA (C):?absent, B/L.?BURNING (C):?absent, B/L.?Nails: ?NAILS are:?Elongated, overgrown, dystrophic, lytic, greater than 3mm thick, discolored and friable with crumbly malodorous subungual debris, with pain on palpation, T1, T2, T3, T4, T6, T7, T8, T9.?Dermatologic: ?SKIN FINDINGS:?Skin exam reveals Keratotic lesion(s) located at sub 5th metatarsal head B/L, sub 1st metatarsal? head, Left, medial IPJ TA, T5.?Orthopedic: ?MUSCLE STRENGTH:?5/5 all groups in a symmetrical fashion, B/L.?FOOT MORPHOLOGY:?Pes Cavus structure, Rigid.?Neurological: ?SENSORY:?Neurological exam reveals intact sensorium, pain sensation normal, vibration sensation intact, pinprick sensation is normal in the lower extremities, Pt denies, anesthesia, burning, paresthesia, tingling, B/L.?General Examination: ?GENERAL APPEARANCE:?Reveals a pleasant, alert, well nourished, well- developed, well hydrated individual, who demonstrates proper attention to hygiene/body habitus, and is in no acute distress, Pt serves as own historian for office visit today.?ORIENTED:?person, place, and time.? Assessment: * Assessment: 1.?Atherosclerosis of [place] artery of both lower extremities, with unspecified presence of clinical manifestation - I70.203 (Primary)???Notes :Q7(A), Q8(2B), Q9(1B,2C)???2.?Tinea unguium - B35.1???3.?Pain in right toe(s) - M79.674???4.?Pain in left toe(s) - M79.675??? Plan: * Treatment: 2.?Tinea unguium?Procedure: 89719-YIMFYRM NAIL, 6 OR MORE * Procedures:?Debride Nail 6-10:?Nail debridement?Due to the clinical pathology outlined in the exam findings, performance of this nail treatment is medically necessary as its management by an unskilled/untrained nonprofessional would put this patients foot and overall health at risk. Therefore, debridement to affected nail(s), as described in exam (?T1, T2, T3, T4, T6, T7, T8, T9 ), was performed exclusively by the physician of record to reduce/remove overall nail length, girth, thickness, subungual debris, and necrotic tissue, by manual and/or electrical means through the use of a nail nipper and/or dremel-type grinder and plater, to a more viable healthy nail plate or bed tissue 6-10 nails in total. Silver nitrate was used for any petechial bleeding as necessary. Definitive antifungal treatment options, both pharmaceutical and surgical, have been reviewed and discussed with the patient. The patient solely prefers the use of intermittent/as needed professional debridement services for their nail condition and understands the need for additional periodic treatments to maintain effectiveness in symptomatic relief - 34211.?Keratoma Treatment:?Parring or Cutting of Benign Hyperkeratotic Lesion(s)?(-57) More than 4 Lesions - Due to the at risk nature of the patients medical condition as documented in the exam findings, performance of this keratoderma treatment is medically necessary as its management by an unskilled/untrained nonprofessional would put this patients foot and overall health at risk. Therefore, the benign hyperkeratotic lesions, ( 5 ) in total, locations as stated and described in the exam ( sub 5th metatarsal head B/L, sub 1st metatarsal? head, Left, medial IPJ TA, T5), were pared, and/or cut utilizing a sterile 15 blade, tissue nippers, and/or power dremel instrumentation by the physician of record - 72469, Q8.? * Procedure Codes:?37828 DEBRI DE NAIL, 6 OR MORE, Modifiers: XS 32458 TRIM SKIN LESIONS, OVER 4, Modifiers: XS , Q8 * Follow Up:?3 Months * Images: * Sign off status: Completed true * Provider:Faustino Monterroso DPM Date:?0 07/16/2024 Generated for Christopher hallman/Michelle/Juan on:?08/27/2024 01:34 PM EST History and Physical Notes * HPI (History of Present Illness) Category Sub-Category Detail Notes Category Not es At Risk footcare Pt States Last PCP Visit: Date: 4 Examination Category Sub-Category Detail Notes Category Not es Neurological SENSORY: Neurological exa m reveals intact sensorium, pain sensation normal, vibration sensation intact, pinprick sensation is normal in the lower extremities, Pt denies, anesthesia, burning, paresthesia, tingling, B/L Dermatologic SKIN FINDINGS: Skin exam reveal s Keratotic lesion(s) located at sub 5th metatarsal head B/L, sub 1st metatarsal head, Left, medial IPJ TA, T5 Orthopedic FOOT MORPHOLOGY: Pes Cavus structure, Rig id MUSCLE STRENGTH: 5/5 all groups in a symmetrical fashion, B/L General Examination GENERAL APPEARANCE: Reveals a pleasant, alert, well nourished, well-developed, well hydrated individual, who demonstrates proper attention to hygiene/body habitus, and is in no acute distress, Pt serves as own historian for office visit today ORIENTED: person, place, and t kristan Vascular DP PULSES (B): 0/4, B/L PT PULSES (B): 0/4, B/L CAPILLARY FILL TIME: delayed, all digits , B/L TEMPERTURE GRADIENT (C): decreased, cool to cool, proximal to distal, B/L TROPHIC CONDITION-TEXTURE/ELASTICITY/TURGOR/HAIR GROWTH (B): decreased, fragile, thin, shiny skin, wi th sparse to absent hair growth, B/L EDEMA (C): absent, B/L CLAUDICATION (C): denies, B/L REST PAIN: denies, B/L PIGMENTATION: mottled, B/L PARESTHESIA (C): absent, B/L BURNING (C): absent, B/L Nails NAILS are: Elongated, overg rown, dystrophic, lytic, greater than 3mm thick, discolored and friable with crumbly malodorous subungual debris, with pain on palpation, T1, T2, T3, T4, T6, T7, T8, T9
--- OUTSIDE RECORDS SUMMARY | 2024-08-27 13:34 | XMS_ITS ---
Author Organization [facility] Address [address] [place] [address] Care Team Providers Care Part Time Name Role Phone Dipak Tinsley MD Primary Care Provider Unavaila Anna Marie Alcala Unavailable [phone] Curly Baer Unavailable [phone] Allergies No Known Allergies REASON FOR VISIT Painful thick toenails which are aggrevated by shoes and causes difficulty standing/walking Medications Medication SIG (Take, Route, Frequency, Duration) Notes Start Date End Date Status LORazepam 1 MG (Schedule IV Drug) O ral for 30 Active Doxycycline Monohydrate 100 MG 1 capsule Orally Once a day for 10 days 06/03/2021 Not-Taking Lisinopril 10 MG Oral for 90 A ctive Custom Orthotics as directed A ctive AFO-fixed . 1 . Wear daily for . 08/03/2017 Not-Taking Metoprolol Succinate ER 50 MG Oral for 90 Active Social History Tobacco Use: Social History [...] Signs Height 5 ft 4 in in 01/18/2024 Weight 105 lbs 01/18/2024 BMI 18.02 kg/m2 01/18/2024 Blood pressure systolic 120 mm Hg 01/18/20 24 Blood pressure diastolic 70 mm Hg 024 Encounters Encounter Location Date Provider Diagnosis [facility] [address] [address] 01/18/2024 Curly Baer Pain in left toe(s) M79.675 ; Tinea unguium B35.1 ; Pain in right toe(s) M79.674 ; Primary osteoarthritis, left ankle and foot M19.072 ; Primary osteoarthritis, right ankle and foot M19.071 ; 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 ; Unspecified atherosclerosis of [place] arteries of extremities, bilateral legs I70.203 and Other hammer toe(s) (acquired), left foot M20.42 Assessments Encounter Date Diagnosis (ICD Code) Assessment Notes Treatment Notes Treatment Clinical Notes Section Notes 01/18/2024 Pain in left toe(s) (ICD-10 - M79.675) 01/18/2024 Tinea unguium (ICD-10 - B35.1) 01/18/2024 Pain in right toe(s) (ICD-10 - M79.674) 01/18/2024 Primary osteoarthritis, left ankle and foot (ICD-10 - M19.072) 01/18/2024 Primary osteoarthritis, right ankle and foot (ICD-10 - M19.071) 01/18/2024 Dropfoot (ICD-10 - M21.379) 01/18/2024 Unspecified atherosclerosis of [place] arteries of extremities, bilateral legs (ICD-10 - I70.203) 01/18/2024 Other hammer toe(s) (acquired), left foot (ICD-10 - M20.42) Plan Of Treatment Medication Medication Name Sig Start Date Stop Date Notes Custom Orthotics as directed Next Appt Details Follow Up: 2 Months, Reason: Provider Name:Anna Marie donaldson, 11/07/2024 02:45:00 PM, [address] [place] [address], [address], Procedure Notes * Category Sub-Category Detail Notes Keratoma Treatment Parring or Cutting o f Benign Hyperkeratotic Lesion(s) 59696 ( >4 Lesions) - The Benign hyperkeratotic [...] as necessary. Patient chooses, no pharmaceutical tx (99413) Nail Reduction Nail Reduction Trimming of dyst rophic nails performed to reduce/remove overall nail length and girth, by manual and electrical means with use of a nail nipper and/or dremel, to more viable healthy nail plate or bed tissue 6-10 (G0127) Progress Notes * Geena GERMAN GDOB:05/1941 (83 yo F)Acc No.[id number]:01/18/2024 Progress Note Patient:?Geena German Sunshine Provider:?Curly Baer DPM :1940???Age:83 Y???Sex:Female D ate:01/18/2024 Address:[address] [place], [place] [address] Pcp:Dipak Tinsley MD Subjective: * Chief Complaints: * ???Painful thick toenails wh ich are aggrevated by shoes and causes difficulty standing/walking * HPI: ???Painful Nails:?Pt States Last PCP Visit:?Date:?08/04/2023 ???Toe pain:?Nature:?tenderness, aching.?Location:?Great toe, Left foot.?Duration:?several months.?Foot Pain:?Nature:?aching, sharp.?Location:?Bottom, Outside, Forefoot, LEFT.?Duration:?several years.?Course:?worse.?Aggrevated:?any pressure, standing, walking.?Severity/Quality:?moderate, severe.? * ROS:?General/Constitutional:?Nausea?denies.?Vomiting?denies.?Hunger Thirst?denies.?Loss [...] replacement 1996hernia 07/31/2015 * [place]ization/Major Diagno stic [place] [place] [place] * Family History:?Mother: [...] week (4 points) ?Points?4 ?Interpretation?Positive ???Miscellaneous:?Caffeine: yes, 2 at most cups per day. ?Children: yes, four, 3 living. ?Exercise: yes, physical therapy. ?Marital status: . 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 * Medications:?TakingCustom Or thotics as directed Metoprolol Succinate ER 50 MG Tablet Extended Release 24 Hour Oral Lisinopril 10 MG Tablet Oral LORazepam 1 MG Tablet (Schedule IV Drug) Oral Taking Custom Orthotics as directed Taking Metoprolol Succinate [...] Vitals:?Ht: 5 ft 4 in, Wt:10 5, BMI:18.02, Shoe size:8, BP:120/70 mm Hg. * Examination: ???General Examination: ?GENERAL APPEARANCE:?pleasant, alert, [...] ?PALPATION:?No interspace pain noted on palpation.?Vascular: ?DP PULSES:?0/4, LEFT, 1/4, RIGHT.?PT PULSES:?0/4, LEFT, 2/4, RIGHT.?Orthopedic: ?MUSCLE STRENGTH:?5/5 all groups [...] Skin exam reveals Keratotic lesion(s) located at, dorsum T3, SUB MTH (s), 2, 3,5 left, plantar of T6, T7, T8 , T3, Medial plantar, IPJ, TA and medial left first mtpj.? Assessment: * Assessment: 1.?Pain in left toe(s) - M79 .675 (Primary)?2.?Tinea unguium - B35.1?3.?Pain in right toe(s) - M79.674?4.?Primary osteoarthritis, left ankle and foot - M19.072?5.?Primary osteoarthritis, right ankle and foot - M19.071?6.?Dropfoot - M21.379?7.?Unspecified atherosclerosis of [place] arteries of extremities, bilateral legs - I70.203?8.?Other hammer toe(s) (acquired), left foot - M20.42? Plan: * Treatment: * Procedures:?Debride Nails 1-5:?Procedure:?Nail debridement performed extensively to reduce/remove overall nail length and girth, subungual debris, and necrotic tissue, by manual and electrical means by use of a nail nipper and/or dremel, to more viable healthy nail plate or bed tissue 1-5. Silver nitrate used for any petechial bleeding as necessary. Patient chooses, no pharmaceutical tx (39751).?Keratoma Treatment:?Parring or Cutting of Benign Hyperkeratotic Lesion(s)?12369 ( >4 Lesions) - The Benign hyperkeratotic [...] or bed tissue 6-10 (G0127).? * Procedure Codes:?35362 DEBRI DE NAIL, 1-5, Modifiers: Q8 39260 TRIM SKIN LESIONS, OVER 4, Modifiers: Q8 G0127 TRIMMING DYSTROPHIC NAILS ANY #, Modifiers: Q8 * Follow Up:?2 Months * Images: * Sign off status: Completed true * Provider:?Curly Baer DPM Date:? 024 Generated for Printi ng/Faxing/eTransmitting on:?08/27/2024 01:33 PM EST History and Physical Notes * HPI (History of Present Illness) Category Sub-Category Detail Notes Category Not es Toe pain Nature: tenderness, aching Location: Great toe, Left foot Duration: several months Painful Nails Pt States Last PCP Visit: Date:: 08/04/2023 Foot Pain Nature: aching, sharp Location: Bottom, [...] exam reveal s Keratotic lesion(s) located at, dorsum T3, SUB MTH (s), 2, 3,5 left, plantar of T6, T7, T8 , T3, Medial plantar, IPJ, TA and medial left first mtpj Orthopedic FOOT MORPHOLOGY: Pes Cavus struc ture [...]
[2024-08-27 13:38] LABS: Thyroid Stimulating Hormone 3.38 uIU/mL (0.32-4.0)
== END 2024-08-27 11:44 | disposition home or self-care (01) ==
LOC: HO.10HDL 11:43
PROVIDERS: Visit Provider Internal Medicine
DX: I10 Essential (primary) hypertension (principal); E78.00 Pure hypercholesterolemia, unspecified; Q05.9 Spina bifida, unspecified
CPT/HCPCS: 36415; 80053; 80061; 84443; 85025

== ENCOUNTER 2025-01-07 14:06 | Outpatient (AMB) | payer MEDICARE, SELFPAY ==
--- OUTSIDE RECORDS SUMMARY | 2024-11-07 10:45 | XMS_ITS ---
Author Organization [facility] Address [address] [place] [address] Care Team Providers Care Postage Machine Operator Name Role Phone Dipak Tinsley MD Primary Care Provider Anna Marie Connell [phone] Encounters Encounter Location Date Provider Diagnosis [address] [address] 11/07/2024 Anna Marie Monterroso Plan Of Treatment Next Appt Details Provider Name:Anna Marie donaldson, 02/25/2025 11:00:00 AM, [address] [place] [address], [address], Progress Notes * ALINKatelynnGeena GDOB:05/1941 (84 yo F)Acc No.[id number]:11/07/2024 Progress Note Patient: Geena SIEGEL Provider: Cherise Monterroso DPM :1940 A ge:84 Y S ex:Female Date:11/07/2024 [facility] [place], [place] Pcp:Dipak Tinsley MD Subjective: * Chief Complaints: * * Medical History: Objective: * Vitals: Assessment: Plan: * Treatment: * Images: * The named appointment provid er may or may not be the originator of this progress note, and it is not deemed complete until electronically signed by the appointment provider. Sign off status: Pending * Provider: Cherise Monterroso, DPDejah Date: 0 11/07/2024 Generated for Christopher hallman/Michelle/Juan on: 01/07/2025 02:32 PM EDT
--- NOTE | 2025-01-07 14:09 | A.OFFPC_ITS ---
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: No Accompanied by: Self / Same As Patient Allergies No Known Allergies (No Known Allergies*) Allergy (Verified 01/07/25 14:12) Medication List - Last Reconciled 01/07/25 by SHAUNA Gilbert amoxicillin 2,000 mg (4 x 500 mg) PO ONCE ibuprofen (Advil) 400 mg PO Q8H lisinopril 20 mg PO DAILY lorazepam 1 mg PO DAILY metoprolol succinate ER 50 mg PO DAILY HPI HPI Comments History of Present Illness Details 84-year-old female with history of hyper tension, anxiety, left footdrop, right inguinal hernia, spina bifida, and cataracts presents to the office today for management of chronic conditions and to establish care. Hypertension-BP in the office 122/64. Compliant with lisinopril 20 mg daily metoprolol 50 mg daily Hyperlipidemia-not on statin. Last LDL 135 Anxiety-well managed on lorazepam. Reports she takes 1 tab daily and occasionally takes a 2nd dose later in the day. Spina bifida-follows with Dr. Rangel in Neurology annually. No issues Left foot drop- following L TKR with associated fracture. Has not had any success with prosthetics but does have a shoe insert. Ambulates with a cane. Previously was in PT, but does not feel she requires this at this time s/p bilateral TKA and left FRANKIE-no ongoing issues but does require amoxicillin prior to dental work Concerns: None Health maintenance: No longer undergoing mammograms ROS: General: No fevers, malaise, unintentional weight loss HEENT: No blurred vision, diplopia. No sore throat, nasal congestion, rhinorrhea, sinus pain, ear pain Cardiovascular: No chest pain, palpitations, or leg edema Respiratory: No shortness of breath, wheezing, cough GI: No abdominal pain, nausea, vomiting, diarrhea, constipation, melena, hematochezia : No dysuria, hematuria, increased urinary frequency, decreased urinary output MSK: No myalgia, back pain Neuro: No headaches, weakness, paresthesias Skin: No rashes or lesions EXAM: Constitutional - Awake and Alert, No apparent distress Eyes - PERRL Cardiovascular - S1S2, RRR, No edema Respiratory - Normal lung expansion, Normal respiratory effort, No respiratory distress, CTA bilaterally Extremities - no calf tenderness bilaterally, no swelling Skin - Warm/Dry Neurological - Alert & oriented x3 Psychological - Appropriate affect [facility] Medical History (Updated 01/07/25 @ 15:03 by SHAUNA Gilbert) Vitamin D deficiency Anxiety Former smoker Left foot drop Spina bifida HLD (hyperlipidemia) HTN (hypertension) Surgical History (Updated 01/07/25 @ 15:03 by SHAUNA Gilbert) Status post total right knee replacement Status post total left knee replacement Status post total hip replacement, left Physical exam (Primary Care) Vital Signs: Last Vital Signs Temp 97.7 F 01/07/25 14:18 Pulse 71 01/07/25 14:18 Resp 16 01/07/25 14:18 BP 122/64 01/07/25 14:18 Pulse Ox 98 01/07/25 14:18 Oxygen Delivery Method Room Air 01/07/25 14:18 BMI result Body Mass Index 17.5 Coding Level of Care Code New Pt Level 4 (95887) Complex EM visit Add On G2211 Diagnoses HTN (hypertension) I10 HLD (hyperlipidemia) E78.5 Spina bifida Q05.9 Left foot drop M21.372 Anxiety F41.9 Assessment & Plan Assessment & Plan (1) HTN (hypertension): Code(s): I10 - Essential (primary) hypertension Category: Medical Plan: Controlled. Continue lisinopril and metoprolol. Low-sodium diet (2) HLD (hyperlipidemia): Code(s): E78.5 - Hyperlipidemia, unspecified Category: Medical Plan: Lipid panel ordered. Recommend diet low in saturated fats and highly processed foods. (3) Spina bifida: Code(s): Q05.9 - Spina bifida, unspecified Category: Medical Plan: Stable. Continue following with Neurology annually (4) Left foot drop: Code(s): M21.372 - Foot drop, left foot Category: Medical Plan: Continue ambulating with cane and utilize shoe insert. If needed, can replace referral to physical therapy (5) Anxiety: Code(s): F41.9 - Anxiety disorder, unspecified Category: Medical Plan: Stable. Continue lorazepam as needed Plan Follow-up in the office in 4 months with labs completed several days prior to visit Orders: Orders Vitamin D 25-OH Total 4 Months E78.5 - Hyperlipidemia, unspecified, I10 - Essential (primary) hypertension Basic Metabolic Panel 4 Months E78.5 - Hyperlipidemia, unspecified, I10 - Ess ential (primary) hypertension Lipid Panel 4 Months E78.5 - Hyperlipidemia, unspecified, I10 - Essential (primary) hypertension Liver Panel 4 Months E78.5 - Hyperlipidemia, unspecified, I10 - Essential (primary) hypertension Complete Blood Count Auto Diff 4 Months E78.5 - Hyperlipidemia, unspecified, I10 - Essential (primary) hypertension Medications: New amoxicillin Take 4 tabs 30 minutes prior to dental work 2,000 mg (4 x 500 mg) PO ONCE 4 tabs 2RF lorazepam 1 mg PO DAILY 60 tabs 0RF Discontinued amoxicillin Take 4 tabs prior to dental work Discontinued Reason: Doctor's Order 500 mg PO QID 4 caps 2RF
[2025-01-07 14:18] VITALS: BP 122/64; PULSE 71; RESP 16; TEMP 36.5; O2SAT 98; BMI 17.5
== END 2025-01-07 14:58 | disposition home or self-care (01) ==
LOC: HO.HMCHD 14:07
PROVIDERS: PCP Internal Medicine; Visit Provider Physician Assistant
DX: I10 Essential (primary) hypertension (principal); E78.5 Hyperlipidemia, unspecified; Q05.9 Spina bifida, unspecified; M21.372 Foot drop, left foot; F41.9 Anxiety disorder, unspecified

== ENCOUNTER → 2025-01-07 14:06 | Outpatient (BNVA) | payer MEDICARE, SELFPAY | PROVIDERS: PCP Internal Medicine; Visit Provider Physician Assistant | DX: Z76.89 Persons encountering health services in other specified circumstances (principal); I10 Essential (primary) hypertension; E78.5 Hyperlipidemia, unspecified; F41.9 Anxiety disorder, unspecified; M21.372 Foot drop, left foot; Q05.9 Spina bifida, unspecified; Z79.899 Other long term (current) drug therapy; Z96.653 Presence of artificial knee joint, bilateral; Z96.642 Presence of left artificial hip joint | CPT/HCPCS: 99202 ==

== ENCOUNTER 2025-04-16 11:22 | Outpatient (AMB) | payer MEDICARE, SELFPAY ==
--- OUTSIDE RECORDS SUMMARY | 2024-11-07 10:45 | XMS_ITS ---
Author Organization [facility] Address [address] [place] [address] Care Team Providers Care Higher Education Administrator Name Role Phone Allison Hill Primary Care Provider Anna Marie Christianson [phone] Encounters Encounter Location Date Provider Diagnosis [address] [address] 11/07/2024 Anna Marie Monterroso Plan Of Treatment Next Appt Details Provider Name:Anna Marie donaldson, 06/03/2025 11:00:00 AM, [address] [place], [address], Progress Notes * MONSERRAT Geena GDOB:05/1941 (84 yo F)Acc No.[id number]:11/07/2024 Progress Note Patient: Geena SIEGEL Provider: Cherise Monterroso DPM :1940 A ge:84 Y S ex:Female Date:11/07/2024 Address:[facility] [address] , [place], [place] Pcp:Allison Hill Subjective: * Chief Complaints: [...] 11/07/2024 Generated for Christopher hallman/Michelle/Juan on: 1 01:51 PM EDT
--- NOTE | 2025-04-16 11:44 | A.OFFVIS_ITS ---
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 She has not fallen. Using furniture walking and uses a cane outside with no further falls in the last year. Occasional left leg gets stuck and turns in and can trip her. Hands are weak and arms ache at times. She has a history of spina bifida and left foot deformity with pes cavus and a shorter left leg, who has had bilateral knee replacement and left hip replacement . For the last few years her left foot has started turning in again like it used to in the past. She also gets episodic left leg weakness for a couple of minutes where she feels the leg will give out and she can walk. She is unable to bring her heel down on the left side but that's not a new phenomena. Foot hasn't changed. [facility] Medical History (Updated 04/16/25 @ 11:48 by Austin Rangel MD) Vitamin D deficiency Anxiety Former smoker Left foot drop Spina bifida HLD (hyperlipidemia) HTN (hypertension) Surgical History (Updated 01/07/25 @ 15:03 by SHAUNA Gilbert) Status post total right knee replacement Status post total left knee replacement Status post total hip replacement, left Review of Systems Const Details: Sleep:? Difficulty getting to sleep?denies.? Difficulty maintaining sleep?admits .? Urge to move legs?denies.? Teeth grinding?denies.? Shouting or Kicking during sleep?denies.? Abnormal behavior during sleep?denies.? Excessive sleep?denies.? Snoring?denies.? Daytime sleepiness?denies.? ?? General/Constitutional:? Change in appetite?denies.? Chills?denies.? Fatigue?denies.? Fever?denies .? Weight gain?denies.? Weight loss?denies.? ?? Ophthalmologic:? Blurred vision?denies.? Diminished visual acuity?denies.? ?? ENT:? Stuffiness?denies.? Decreased hearing?denies.? Dry mouth?denies.? Ear p ain?denies.? Nosebleed?denies.? Ringing in the ears?denies.? Sinus pain?denies.? Sore throat?denies.? Swollen glands?denies.? ?? Endocrine:? Cold intolerance?denies.? Excessive thirst?denies.? Frequent urination? denies.? Heat intolerance?denies.? ?? Respiratory:? Shortness of breath?denies.? Chest pain?denies.? Cough?denies.? ?? Breast:? Breast lump?denies.? Nipple discharge?denies.? ?? Cardiovascular:? Chest pain at rest?denies.? Chest pain with exertion?denies.? Claudication?denies.? Dizziness?denies.? Fluid accumulation in the legs?denies.? Irregular heartbeat?denies.? Palpitations?denies.? ?? Gastrointestinal:? Abdominal pain?denies.? Constipation?denies.? Diarrhea?denies.? Difficulty swallowing?denies.? Heartburn?denies.? Nausea?denies.? Rectal bleeding?denies.? ?? Hematology:? Easy bruising?denies.? Prolonged bleeding?denies.? ?? Genitourinary:? Frequent urination?denies.? Urgency?denies.? Incontinence?denies.? Erectile Dysfunction?denies.? ?? Musculoskeletal:? Neck pain?denies.? Back pain?denies.? Muscle aches?admits.? Painful joints?denies.? Sciatica?denies.? Weakness?Left leg.? ?? Podiatric:? Difficulty walking?denies.? Foot numbness?denies.? ?? Neurologic:? Difficulty swallowing?denies.? Balance difficulty?denies.? Coordination? normal.? Difficulty speaking?denies.? Dizziness?denies.? Fainting?denies.? Gait abnormality?admits.? Headache?denies.? Loss of strength?denies.? Loss of use of extremity?denies.? Low back pain?denies.? Memory loss?denies.? Seizures?denies.? Tics?denies.? Tingling/Numbness?denies.? Transient loss of vision?denies.? Tremor?denies.? ?? Psychiatric:? Anxiety?admits.? Auditory/visual hallucinations?denies.? Delusions?denies .? Depressed mood?denies.? Stressors?denies.? Substance abuse?denies.? Suicidal thoughts?denies.? ?? Physical Exam Neuro Other: General Examination: ? GENERAL APPEARANCE:?normal,?in no acute distress.? HEAD:?normocephalic,?atraumatic.? EYES:?sclera non-icteric,?conjunctiva clear.? EARS:?auditory canal clear,?tympanic membrane intact, clear.? NOSE:?no lesions.? ORAL CAVITY:?gums normal,?mucosa moist,?no lesions.? THROAT:?clear.? NECK/THYROID:?no cervical lymphadenopathy,?thyroid normal,?neck supple, full range of motion,?no carotid bruit.? SKIN:?no rashes,?no significant birthmarks.? HEART:?S1, S2 normal,?no murmurs.? LUNGS:?clear anteriorly and posteriorly.? CHEST:?no gross rib deformity,?clear to auscultation.? BACK:?normal exam of spine.? EXTREMITIES:?no edema.? PERIPHERAL PULSES:?normal.? PSYCH:?alert, oriented,?cognitive function intact,?cooperative with exam.? Neurological: ? Abnormal neurological findings:?Pes cavus deformity, left worse than right. Shortening of the left tendo Achilles, thinning of the leg muscles with some atrophy of the anterior and anterolateral leg muscles. Inability to dorsiflex the left ankle fully with some ankylosis of the ankle. Normal sensory exam.? Mental Status:?alert and oriented X 3,?Normal attention, orientation, memory and affect.? Cranial Nerves:?Pupils are equal, round and reactive to light. Fundoscopy shows normal disc bilaterally. External occular muscles are intact. Visual mead are full, no ptosis. Face is symmetrical, no facial weakness or droop. Facial sensations are normal. Tongue protrudes in midline. Palate elevates symmetrically. Shoulder shrugging is normal..? Motor Examination:?As above, abnormalities of the left leg, otherwise Normal muscle tone, bulk and strength,?No atrophy or fasciculations,?No drift of the extended upper extremities,?Deep tendon reflexes are 2+?,?Plantars are flexor?.? Straight Leg Raising:?90 degrees.? Sensory Exam:?Normal light touch, temperature, pinprick, vibration and joint-position sensations?,?Rhomberg sign is absent.? Coordination:?no ataxia,?no titubation,?yoomug-fo-gnxb, krny-dwfq-sphw test and rapid alternating movements were normal.? Gait Exam:?Walks with a limp with the left foot turned inwards walking on the forefoot with the heel off the ground.? Cerebellar Signs:?Gghwvw-ig-uepy and otfd-gh-klpr is normal,?no dysdiadochokinesia?.? Extrapyramidal System:?No tremor, rigidity with normal facial expressions,?No bradykinesia, no bradyphrenia. Normal arm swing and posture. No propulsion or retropulsion.? Speech:?Normal,?no dysphasia or dysarthria..? Mini Mental Status Exam: ? Level of Consciousness:?Alert.? Orientation:?Knows correct year, month, date, day and season,?Knows correct city, county and state. Knows correct location and floor.? Registration:?Able to register 3 objects.? Attention:?Serial 7's performed accurately.? Recall:?Able to recall 3 out of 3 objects.? Language:?Normal spontaneous speech, fluency, repetition,naming, c omprehension, reading and writing.? Total Score:?.? Assessment & Plan Assessment & Plan (1) Spina bifida: Code(s): Q05.9 - Spina bifida, unspecified Category: Medical (2) Left foot drop: Comment: NCV/EMG LE 01/25/18 Normal motor and sensory nerve conduction velocities in the lower extremities. 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 Continue current meds Coding Level of Care Code Est Pt Level 4 (35979) Diagnoses Spina bifida Q05.9 Left foot drop M21.372 Congenital talipes calcaneovarus Q66.10
--- OUTSIDE RECORDS SUMMARY | 2025-04-16 13:52 | XMS_ITS | Patient Health Record ---
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 1 . Wear daily; Duration: . 08/03/2017 Not-Taking LORazepam 1 MG (Schedule IV Drug) Oral; Duration: 30 Active Custom Orthotics as directed N ot-Taking Metoprolol Succinate ER 50 MG Oral; Duration: 90 Active Lisinopril 10 MG Oral; Duration: 90 Active Advil as needed Active Immunizations Vaccine Route Administration Date Status Comme nts Influenza Unknown 05/20/2021 Refused Influenza Unknown 02/25/2025 Refused COVID-19 Pfizer BioNTech Vaccine Unknown 04/20/2021 Administered 1at 07/03/2021 2nd 07/25/2020 Social History Tobacco Use: Social History Observation [...] Problem Status W/U Status Risk Notes Problem Bilateral atherosclerosis of arteries of lower limbs (disorder) ([id number] ) Atherosclerosis of [place] artery of both lower extremities, with unspecified presence of clinical manifestation (I70.203) Active confirmed Q7(A), Q8(2B), Q9(1B,2 C) Vital Signs Blood pressure diastolic 65 mm Hg 02/25/2025 Height 5 ft 4 in in 02/25/2025 Blood pressure systolic 128 mm Hg 02/25/2025 Weight 106 lbs 02/25/2025 BMI 18.19 kg/m2 02/25/2025 Procedures Procedure Date Ordered Date Performed Result Body Sit e 98323-KCALTTZ NAIL, 6 OR MORE 07/16/2024 N/A 60635-KSBG SKIN LESIONS, OVER 4 07/16/2024 N/A 89532-CZKFIEC NAIL, 6 OR MORE 11/06/2024 N/A 24261-ZKJN SKIN LESIONS, OVER 4 11/06/2024 N/A 52767-SXIYJRM NAIL, 6 OR MORE 02/25/2025 N/A 75967-LQZJ SKIN LESIONS, OVER 4 02/25/2025 N/A Encounters Encounter Location Date Provider Diagnosis [address] [address] 07/16/2024 Anna Marie Monterroso Atherosclerosis of [place] artery of both lower extremities, with unspecified presence of clinical manifestation I70.203 ; Tinea unguium B35.1 ; Pain in right toe(s) M79.674 and Pain in left toe(s) M79.675 [facility] [address] [address] 11/06/2024 Anna Marie Monterroso Atherosclerosis of [place] artery of both lower extremities, with unspecified presence of clinical manifestation I70.203 ; Tinea unguium B35.1 ; Pain in right toe(s) M79.674 and Pain in left toe(s) M79.[address] [address] 02/25/2025 Anna Marie Monterroso Atherosclerosis of [place] artery of both lower extremities, with unspecified presence of clinical manifestation I70.203 ; Tinea unguium B35.1 ; Pain in right toe(s) M79.674 and Pain in left toe(s) M79.675 [facility] [place] [address] [place] [address] 11/05/2024 Anna Marie Monterroso Assessments Encounter Date Diagnosis (ICD Code) Assessment Notes Treatment Notes Treatment Clinical Notes Section Notes 07/16/2024 Atherosclerosis of [place] artery of both lower extremities, with unspecified presence of clinical manifestation (ICD-10 - I70.203) Q7(A), Q8(2B), Q9(1B,2C) 11/06/2024 Atherosclerosis of [place] artery of both lower extremities, with unspecified presence of clinical manifestation (ICD-10 - I70.203) Q7(A), Q8(2B), Q9(1B,2C) 02/25/2025 Atherosclerosis of [place] artery of both lower extremities, with unspecified presence of clinical manifestation (ICD-10 - I70.203) Q7(A), Q8(2B), Q9(1B,2C) 02/25/2025 Tinea unguium (ICD-10 - B35.1) 11/06/2024 Tinea unguium (ICD-10 - B35.1) 07/16/2024 Tinea unguium (ICD-10 - B35.1) 07/16/2024 Pain in right toe(s) (ICD-10 - M79.674) 11/06/2024 Pain in right toe(s) (ICD-10 - M79.674) 02/25/2025 Pain in right toe(s) (ICD-10 - M79.674) 02/25/2025 Pain in left toe(s) (ICD-10 - M79.675) 07/16/2024 Pain in left toe(s) (ICD-10 - M79.675) 11/06/2024 Pain in left toe(s) (ICD-10 - M79.675) Plan Of Treatment Pending Test Test Name Order Date X ray : Ankle, left 2V 07/08/2015 X ray : Foot, left 2V 07/08/2015 X ray : Foot, right 2V 07/08/2015 X ray : Foot, left 3V 06/03/2021 51288-XYOTEEQ NAIL, 6 OR MORE 07/16/2024 28424-IZNAOXF NAIL, 6 OR MORE 11/06/2024 05602-BABRKUZ NAIL, 6 OR MORE 02/25/2025 51780-XYYKSMZ NAIL, 6 OR MORE 08/03/2017 43731-RGJFGZN NAIL, 1-5 03/16/2017 14420-ZZLLSEC NAIL, 1-5 12/15/2016 22167-HSDHMWM NAIL, 1-5 11/23/2017 71002-DYENPLT NAIL, 1-5 02/22/2018 07427-SUHWIZO NAIL, 1-5 07/08/2015 01912-FOBYJIQ NAIL, 1-5 09/17/2015 84256-KZWSJUL NAIL, 1-5 12/17/2015 51072-TIKCLZO NAIL, 1-5 03/17/2016 91673-CYJIOAO NAIL, -5 06/16/2016 79434-KSPERSX NAIL, 1-5 09/15/2016 67802-MJWHJBT NAIL, 1-5 05/17/2018 13518-MFNPFJZ SKIN/TISSUE 06/03/2021 62062-BSFOGHO SKIN/TISSUE 06/12/2021 55783-RTLB SKIN LESIONS, OVER 4 09/15/19 22 38390-KRTP SKIN LESIONS, OVER 4 01/13/20 23 26465-LQWU SKIN LESIONS, OVER 4 11/20/19 21 92499-YHTD SKIN LESIONS, OVER 4 02/13/20 21 49605-NSOH SKIN LESIONS, OVER 4 02/26/20 25 85727-FANZ SKIN LESIONS, OVER 4 11/07/19 25 23616-NIOS SKIN LESIONS, OVER 4 07/16/19 25 01529-RYGJ SKIN LESIONS, OVER 4 05/20/20 21 77964-VPMJ SKIN LESIONS, OVER 4 09/07/19 19 59201-XIFO SKIN LESIONS, OVER 4 02/01/20 19 15003-BDQN SKIN LESIONS, OVER 4 05/16/20 19 24766-GCBA SKIN LESIONS, OVER 4 08/29/19 20 61273-HGQF SKIN LESIONS, OVER 4 11/28/19 20 17304-TOLV SKIN LESIONS, OVER 4 06/18/20 20 86638-GRVE SKIN LESIONS, OVER 4 09/11/19 21 12979-HCDY SKIN LESIONS, OVER 4 09/16/19 17 49160-EBPG SKIN LESIONS, OVER 4 06/16/20 16 93483-QZKJ SKIN LESIONS, OVER 4 03/17/20 16 83061-FWFR SKIN LESIONS, OVER 4 12/17/19 16 63888-BWEJ SKIN LESIONS, OVER 4 02/23/20 18 35760-IVGZ SKIN LESIONS, OVER 4 05/17/20 18 39374-RHRG SKIN LESIONS, OVER 4 08/03/19 18 21446-XAQH SKIN LESIONS, OVER 4 11/24/19 18 50975-SKAR SKIN LESIONS, OVER 4 12/16/19 17 71978-KVSU SKIN LESIONS, OVER 4 03/16/20 17 04425-ECOL SKIN LESIONS, OVER 4 02/27/20 20 47437-DOBV SKIN LESIONS, 2 TO 4 09/17/19 16 49905-IWPA SKIN LESIONS, 2 TO 4 07/08/19 16 07853-SHCZ SKIN LESIONS, 2 TO 4 04/11/20 24 64539-UUAG NAIL(S) 07/08/2015 18712-FGNK NAIL(S) 09/17/2015 94044-WPPO NAIL(S) 12/17/2015 62629-EDSN NAIL(S) 03/17/2016 60070-DFET NAIL(S) 06/16/2016 50836-ACEK NAIL(S) 09/15/2016 99381-REQX NAIL(S) 12/15/2016 62872-DNBH NAIL(S) 03/16/2017 54070-ZSQG NAIL(S) 08/03/2017 32671-CMNM NAIL(S) 11/23/2017 G7966-XJWVXQFY DYSTROPHIC NAILS ANY # X2948-WLBWOMQD DYSTROPHIC NAILS ANY # O2438-MMDOJCWJ DYSTROPHIC NAILS ANY # A2771-MNREFHNO DYSTROPHIC NAILS ANY # J6526-VLHVLYAI DYSTROPHIC NAILS ANY # F7597-SYYJYDHS DYSTROPHIC NAILS ANY # L9234-ITWAXATF DYSTROPHIC NAILS ANY # W5849-CROFQTID DYSTROPHIC NAILS ANY # E7216-KRPOEZXJ DYSTROPHIC NAILS ANY # L5862-LOFYRKOQ DYSTROPHIC NAILS ANY # O0951-GZCDQEJQ DYSTROPHIC NAILS ANY # C7410-DYZWRZWM DYSTROPHIC NAILS ANY # P1118-FJIMHXDQ DYSTROPHIC NAILS ANY # Next Appt Details Provider Name:Anna Marie donaldson, 06/03/2025 11:00:00 AM, [address] [facility], [place], [address], Insurance Providers Payer Name Payer Address Payer Phone Subscriber Number Group Number Insured Name Patient Relationship to Insured Coverage Start Date Coverage End Date Medicare National Govt [employer] [facility] [address] [place] [address] [id number] Geena German Self - patient is the insured 4 [employer] Blue [employer] [address] [place] [address] [phone] [id number] Geena German Self - patient is the insured Medical (General) History Medical History History ICD Code Anxiety Arthritis Glaucoma High blood pressure Spina bifida Measles Mumps Chicken pox Joint implants/screws Surgical History Surgery Date(Month/Year) spine surgery - Spina Bifida 1941 knee surgery, left 2013 knee surgery, right 2013 left hip replacement 1996 hernia 07/31/2015 Hospitalization History Reason Date(Month/Year) [facility] [place] at work 05/03/18 [facility] [place]stables on her head and broken ribs 05/2017
== END 2025-04-16 12:02 | disposition home or self-care (01) ==
LOC: HO.HSM 11:23
PROVIDERS: PCP Internal Medicine; Referring Provider Internal Medicine; Visit Provider Psychiatry & Neurology Neurology
DX: Q05.9 Spina bifida, unspecified (principal); M21.372 Foot drop, left foot; Q66.10 Congenital talipes calcaneovarus, unspecified foot
CPT/HCPCS: 99214

== ENCOUNTER → 2025-04-16 11:22 | Outpatient (BNVA) | payer MEDICARE, SELFPAY | PROVIDERS: PCP Internal Medicine; Referring Provider Internal Medicine; Visit Provider Psychiatry & Neurology Neurology | DX: Q05.9 Spina bifida, unspecified (principal); Q66.12 Congenital talipes calcaneovarus, left foot; Q66.11 Congenital talipes calcaneovarus, right foot | CPT/HCPCS: 99212 ==

== ENCOUNTER 2025-05-07 10:15 | Outpatient (REF) | payer MEDICARE, SELFPAY ==
--- OUTSIDE RECORDS SUMMARY | 2024-11-07 09:45 | XMS_ITS ---
Author Organization [facility] Address [address] [place] [address] Care Team Providers Care Chief Dietitian Name Role Phone Allison Hill Primary Care Provider Anna Marie Christianson [phone] Encounters Encounter Location Date Provider Diagnosis [address] [address] 11/07/2024 Anna Marie Monterroso Plan Of Treatment Next Appt Details Provider Name:Anna Marie donaldson, 06/03/2025 11:00:00 AM, [address] [place], [address], Progress Notes * MONSERRAT Geena GDOB:05/1941 (84 yo F)Acc No.[id number]:11/07/2024 Progress Note Patient: Geena SIEGEL Provider: Cherise Monterroso DPM :1940 A ge:84 Y S ex:Female Date:11/07/2024 Address:[facility] [address] , [place], [place] Pcp:Allison Hill Subjective: * Chief Complaints: * * Medical History: Objective: * Vitals: Assessment: Plan: * Treatment: * Images: * The named appointment provid er may or may not be the originator of this progress note, and it is not deemed complete until electronically signed by the appointment provider. Sign off status: Pending * Provider: Cherise Monterroso, DIVINA Date: 0 11/07/2024 Generated for Christopher hallman/Michelle/Juan on: 1 07/07/2024 12:05 PM EST
--- OUTSIDE RECORDS SUMMARY | 2025-05-07 12:06 | XMS_ITS | Patient Health Record ---
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 Name Role Phone Sergio Allison Primary Care Provider Anna Marie Christianson Unavailable [phone] Allergies No Known Allergies Reason For Referral [...] atherosclerosis of arteries of lower limbs (disorder) ([id number] ) Atherosclerosis of [place] artery of both lower extremities, with unspecified presence of clinical manifestation (I70.203) Active confirmed Q7(A), Q8(2B), Q9(1B,2 C) Vital Signs Blood pressure diastolic 65 mm Hg 02/25/2025 Height 5 ft 4 in in 02/25/2025 Blood pressure systolic 128 mm Hg 02/25/2025 Weight 106 lbs 02/25/2025 BMI 18.19 kg/m2 02/25/2025 Procedures Procedure Date Ordered Date Performed Result Body Sit e 04467-NKSTIAP NAIL, 6 OR MORE 07/16/2024 N/A 68009-MNAM SKIN LESIONS, OVER 4 07/16/2024 N/A 04410-IPPKKQQ NAIL, 6 OR MORE 11/06/2024 N/A 56446-TIQR SKIN LESIONS, OVER 4 11/06/2024 N/A 19682-AAIOFGL NAIL, 6 OR MORE 02/25/2025 N/A 33170-ESOJ SKIN LESIONS, OVER 4 02/25/2025 N/A Encounters Encounter Location Date Provider Diagnosis [address] [address] 07/16/2024 Anna Marie Monterroso Atherosclerosis of [place] artery of both lower extremities, with unspecified presence of clinical manifestation I70.203 ; Tinea unguium B35.1 ; Pain in right toe(s) M79.674 and Pain in left toe(s) M79.675 [facility] [address] [address] 11/06/2024 Anna Marie Monterroso Atherosclerosis of [place] artery of both lower extremities, with unspecified presence of clinical manifestation I70.203 ; Tinea unguium B35.1 ; Pain in right toe(s) M79.674 and Pain in left toe(s) M79.[address] [address] 02/25/2025 Anna Marie Monterroso Atherosclerosis of [place] artery of both lower extremities, with unspecified presence of clinical manifestation I70.203 ; Tinea unguium B35.1 ; Pain in right toe(s) M79.674 and Pain in left toe(s) M79.675 [facility] [place] [address] [place] [address] 11/05/2024 Anna Marie Monterroso Assessments Encounter Date Diagnosis (ICD Code) Assessment Notes Treatment Notes Treatment Clinical Notes Section Notes 07/16/2024 Atherosclerosis of [place] artery of both lower extremities, with unspecified presence of clinical manifestation (ICD-10 - I70.203) Q7(A), Q8(2B), Q9(1B,2C) 11/06/2024 Atherosclerosis of [place] artery of both lower extremities, with unspecified presence of clinical manifestation (ICD-10 - I70.203) Q7(A), Q8(2B), Q9(1B,2C) 02/25/2025 Atherosclerosis of [place] artery of both lower extremities, with unspecified [...] X ray : Foot, left 3V 06/03/2021 26341-WCFYSBU NAIL, 6 OR MORE 07/16/2024 75564-NLYPYZK NAIL, 6 OR MORE 11/06/2024 36977-TAEETTZ NAIL, 6 OR MORE 08/03/2017 52765-XXUTAOK NAIL, 6 OR MORE 02/25/2025 71391-ADRDJYI NAIL, 1-5 03/16/2017 31040-VGWBPNU NAIL, 1-5 12/15/2016 57526-QTBNSCC NAIL, 1-5 11/23/2017 16273-MYAXCXB NAIL, 1-5 02/22/2018 19944-LZWDCFY NAIL, 1-5 07/08/2015 00478-JBFKFYC NAIL, 1-5 09/17/2015 45583-GOWVMIV NAIL, 1-5 12/17/2015 49477-BYFKKIU NAIL, 1-5 03/17/2016 07433-JBAOYJL NAIL, -5 06/16/2016 15228-GEOWVID NAIL, 1-5 09/15/2016 32255-EUBPFSB NAIL, 1-5 05/17/2018 60662-MAPEUKL SKIN/TISSUE 06/03/2021 88083-MOVXWDJ SKIN/TISSUE 06/12/2021 28296-FTWX SKIN LESIONS, OVER 4 09/15/19 22 77398-GVCK SKIN LESIONS, OVER 4 11/20/19 21 89094-XHUA SKIN LESIONS, OVER 4 02/13/20 21 11219-AQNA SKIN LESIONS, OVER 4 11/07/19 25 37557-ZMYI SKIN LESIONS, OVER 4 07/16/19 25 02620-OIAD SKIN LESIONS, OVER 4 05/20/20 21 21118-XEPG SKIN LESIONS, OVER 4 01/13/20 23 01341-OPRQ SKIN LESIONS, OVER 4 09/07/19 19 90630-CDGH SKIN LESIONS, OVER 4 02/01/20 19 05607-LRKP SKIN LESIONS, OVER 4 05/16/20 19 21865-BOSR SKIN LESIONS, OVER 4 08/29/19 20 58237-LUGD SKIN LESIONS, OVER 4 11/28/19 20 45723-BXVF SKIN LESIONS, OVER 4 02/27/20 20 61149-PSAJ SKIN LESIONS, OVER 4 06/18/20 20 46613-TOBS SKIN LESIONS, OVER 4 09/11/19 21 54919-QASG SKIN LESIONS, OVER 4 09/16/19 17 09029-JMWW SKIN LESIONS, OVER 4 06/16/20 16 56916-VYBK SKIN LESIONS, OVER 4 03/17/20 16 64245-TNGI SKIN LESIONS, OVER 4 12/17/19 16 10525-RZCI SKIN LESIONS, OVER 4 02/23/20 18 78511-KTSO SKIN LESIONS, OVER 4 05/17/20 18 07008-UWUU SKIN LESIONS, OVER 4 08/03/19 18 36767-WJDI SKIN LESIONS, OVER 4 11/24/19 18 37157-DDZQ SKIN LESIONS, OVER 4 12/16/19 17 16496-ZDXG SKIN LESIONS, OVER 4 03/16/20 17 54570-BHJQ SKIN LESIONS, OVER 4 02/26/20 25 11995-THIO SKIN LESIONS, 2 TO 4 09/17/19 16 40795-YNQO SKIN LESIONS, 2 TO 4 07/08/19 16 72158-ABDS SKIN LESIONS, 2 TO 4 04/11/20 24 75873-QPFN NAIL(S) 07/08/2015 06343-XXSX NAIL(S) 09/17/2015 67569-UUCV NAIL(S) 12/17/2015 28186-YNZT NAIL(S) 03/17/2016 27994-BJDW NAIL(S) 06/16/2016 60995-KPMV NAIL(S) 09/15/2016 97732-UHIP NAIL(S) 12/15/2016 97950-BJOT NAIL(S) 03/16/2017 41138-WCMD NAIL(S) 08/03/2017 06886-XMEI NAIL(S) 11/23/2017 M4856-IKMGIMUQ DYSTROPHIC NAILS ANY # X6586-VDTMULNT DYSTROPHIC NAILS ANY # L3892-DLOXZFVI DYSTROPHIC NAILS ANY # K1525-GUXLKFTN DYSTROPHIC NAILS ANY # N9408-OVZQNDEM DYSTROPHIC NAILS ANY # F0800-MAWMYCIG DYSTROPHIC NAILS ANY # N0998-XRBPLJTT DYSTROPHIC NAILS ANY # R1593-SBGVQKLK DYSTROPHIC NAILS ANY # E6267-LWADTOZE DYSTROPHIC NAILS ANY # F2691-FHAZLUBL DYSTROPHIC NAILS ANY # Q8488-FLUNUTQM DYSTROPHIC NAILS ANY # O9123-KOBVGJYN DYSTROPHIC NAILS ANY # Q1154-PGDXKHUG DYSTROPHIC NAILS ANY # Next Appt Details Provider Name:Anna Marie donaldson, 06/03/2025 11:00:00 AM, [address] [facility], [place], [address], Insurance Providers Payer Name Payer Address Payer Phone Subscriber Number Group Number Insured Name Patient Relationship to Insured Coverage Start Date Coverage End Date Medicare National Govt [employer] [facility] [address] [place] [address] [id number] Geena German Self - patient is the insured 4 [employer] [address] [place] [address] [phone] [id number] Geena German Self - patient is the insured Medical (General) History Medical History History ICD Code Anxiety Arthritis Glaucoma High blood pressure Spina bifida Measles Mumps Chicken pox Joint implants/screws Surgical History Surgery Date(Month/Year) spine surgery - Spina Bifida 1941 knee surgery, left 2013 knee surgery, right 2013 left hip replacement 1996 hernia 07/31/2015 Hospitalization History Reason Date(Month/[place] [facility] [place]03/18 [facility] [place] and broken ribs 05/2017
[2025-05-07 13:09] LABS: MANUAL DIFF FLAG NO
[2025-05-07 13:18] LABS: Hematocrit 42.1 % (37.0-47.0); Hemoglobin 14.2 g/dl (12.0-16.0); Imm Gran Abs Auto 0.02 X10*3/uL (0.00-0.03); Imm Gran Pct Auto 0.2 % (0.0-0.4); Lymphocytes Absolute Auto 4.0 X10*3/uL (1.2-4.9); Mean Corpuscular HGB Conc 33.7 g/dl (31.0-35.0); Mean Corpuscular Hemoglobin 33.3 pg (27.0-33.0); Mean Corpuscular Volume 98.6 fL (80.0-98.0); NRBC Abs Auto 0.000 X10*3/uL (0.0-0.012); NRBC Pct Auto 0.0 /100WBC (0.0-0.2); Platelet Count 287 X10*3/uL (160-400); Red Blood Count 4.27 X10*6/uL (4.20-5.50); White Blood Count 9.2 X10*3/uL (4.8-10.8)
[2025-05-07 13:41] LABS: Alanine Aminotransferase 12 U/L (0-31); Albumin Level 4.2 g/dL (3.5-5.0); Alkaline Phosphatase 70 U/L (39-117); Anion Gap 9 (12-20); Aspartate Amino Transferase 30 U/L (5-31); Blood Urea Nitrogen 18 mg/dL (9-16); Calcium 9.1 mg/dL (8.4-10.2); Carbon Dioxide 29 mmol/L (22-29); Chloride 103 mmol/L (96-108); Cholesterol 268 mg/dL (<200); Estimated Glomerular Filt Rate > 60; HDL Cholesterol 109 mg/dL (>40); Potassium 4.2 mmol/L (3.3-5.1); Sodium 137 mmol/L (135-145); Total Protein 6.5 g/dL (6.5-8.0); Triglycerides 76 mg/dL (<150)
== END 2025-05-07 10:16 | disposition home or self-care (01) ==
LOC: HO.10HDL 10:15
PROVIDERS: Visit Provider Physician Assistant
DX: I10 Essential (primary) hypertension (principal); E78.5 Hyperlipidemia, unspecified
CPT/HCPCS: 36415; 80048; 80061; 80076; 82306; 85025

== ENCOUNTER 2025-05-13 14:18 | Outpatient (AMB) | payer MEDICARE, SELFPAY ==
--- NOTE | 2025-05-13 14:02 | A.OFFPC_ITS ---
Vital Signs 05/13/25 14:29 Height 5 ft 2.2 in Weight 47.627 kg BMI 19.1 BP 182/102 H Blood Pressure Location Rt brachial Position Sitting Respiration 18 Pulse 67 Pulse Source Pulse Oximeter Temp 98.1 F Temp Source Temporal Artery Scan Pulse Oximetry (%) 97 Oxygen Delivery Method Room Air Intake Visit Reasons: routine Surgical Services Director Required: No Accompanied by: Self / Same As Patient Allergies No Known Allergies (No Known Allergies*) Allergy (Verified 05/13/25 14:02) Medication List - Last Reconciled 05/13/25 by SHAUNA Gilbert ibuprofen (Advil) 400 mg PO Q8H lisinopril 30 mg PO DAILY lorazepam 1 mg PO DAILY PRN metoprolol succinate ER 50 mg PO DAILY Tobacco use date assessed: 05/13/25 Fall risk assessment: 1 Fall in past year Last assessed Fall Risk: 05/13/25 Dental Screening Dental Screen Date: 05/13/25 Did you have a dental visit in the last 12 months?: Yes Did you have a dental problem in the last 6 months where you did not have access to dental care?: No Was dental information given to patient?: Patient has dentist HPI HPI Comments 2 History of Present Illness Details 84-year-old female with history of hyper tension, anxiety, left footdrop, right inguinal hernia, spina bifida, and cataracts presents to the office today for management of chronic conditions. Hypertension-BP in the office 122/64. Compliant with lisinopril 20 mg daily metoprolol 50 mg daily Hyperlipidemia-not on statin. Last LDL 144 Anxiety-lorazepam very sparingly Spina bifida- follows with Dr. Rangel in Neurology annually. No issues Left foot drop- following L TKR with associated fracture. Has not had any success with prosthetics but does have a shoe insert. Ambulates with a cane. Dr. Rangel suspects r/t spina bifida. s/p bilateral TKA and left FRANKIE-no ongoing issues but does require amoxicillin prior to dental work Concerns: None Health maintenance: No longer undergoing mammograms ROS: General: No fevers, malaise, unintentional weight loss HEENT: No blurred vision, diplopia. No sore throat, nasal congestion, rhinorrhea, sinus pain, ear pain Cardiovascular: No chest pain, palpitations, or leg edema Respiratory: No shortness of breath, wheezing, cough GI: No abdominal pain, nausea, vomiting, diarrhea, constipation, melena, hematochezia : No dysuria, hematuria, increased urinary frequency, decreased urinary output MSK: No myalgia, back pain Neuro: No headaches, weakness, paresthesias Skin: No rashes or lesions EXAM: Constitutional - Awake and Alert, No apparent distress Eyes - PERRL Cardiovascular - S1S2, RRR, No edema Respiratory - Normal lung expansion, Normal respiratory effort, No respiratory distress, CTA bilaterally Extremities - no calf tenderness bilaterally, no swelling Skin - Warm/Dry Neurological - Alert & oriented x3 Psychological - Appropriate affect [facility] Medical History (Updated 04/16/25 @ 11:48 by Austin Rangel MD) Vitamin D deficiency Anxiety Former smoker Left foot drop Spina bifida HLD (hyperlipidemia) HTN (hypertension) Surgical History (Updated 01/07/25 @ 15:03 by SHAUNA Gilbert) Status post total right knee replacement Status post total left knee replacement Status post total hip replacement, left Social History Housing: House Patient Tobacco Use Status: Former Tobacco user e-Cigarette/Vaping Use: Never Used service: No Current occupational status: retired Questionnaire AUDIT C Alcohol Use Questionnaire (AUDIT-C) 1. How often do you have a drink containing alcohol?: 4 or more times a week 2. How many drinks containing alcohol do you have on a typical day when you are drinking?: 1 or 2 3. How often do you have six or more drinks on one occasion?: Never Total Score: 4 Physical exam (Primary Care) Vital Signs: Last Vital Signs Temp 98.1 F 05/13/25 14:29 Pulse 67 05/13/25 14:29 Resp 18 05/13/25 14:29 BP 182/102 H 05/13/25 14:29 Pulse Ox 97 05/13/25 14:29 Oxygen Delivery Method Room Air 05/13/25 14:29 BMI result Body Mass Index 19.1 Tobacco/Smoking Status: Tobacco use Status Tobacco use date assessed 05/13/25 05/13/25 14:03 Patient Tobacco Use Status Former Tobacco user 05/13/25 14:34 e-Cigarette/Vaping Use Never Used 05/13/25 14:34 Coding Level of Care Code Est Pt Level 4 (03227) Complex EM visit Add On G2211 Diagnoses HTN (hypertension) I10 HLD (hyperlipidemia) E78.5 Spina bifida Q05.9 Left foot drop M21.372 Anxiety F41.9 Assessment & Plan Assessment & Plan (1) HTN (hypertension): Code(s): I10 - Essential (primary) hypertension Category: Medical Plan: Uncontrolled. Increase lisinopril to 30 mg daily. Advised to check blood pressures at home. Follow up in the office in 3 weeks for nurse blood pressure check (2) HLD (hyperlipidemia): Code(s): E78.5 - Hyperlipidemia, unspecified Category: Medical Plan: LDL elevated at 142. However given age and lack of significant comorbidities, we will defer initiation of statin. Recommend diet low in saturated fats and highly processed foods. (3) Spina bifida: Code(s): Q05.9 - Spina bifida, unspecified Category: Medical Plan: Stable. Continue following with Neurology annually (4) Left foot drop: Comment: NCV/EMG LE 01/25/18 Normal motor and sensory nerve conduction velocities in the lower extremities. EMG bilaterally of the L4-S1 innervated muscles is consistent with chronic neuropathic changes Code(s): M21.372 - Foot drop, left foot Category: Medical Plan: Continue ambulating with cane and utilize shoe insert. Fall prevention (5) Anxiety: Code(s): F41.9 - Anxiety disorder, unspecified Category: Medical Plan: Managed. Lorazepam PRN Plan Follow-up in the office in 4 months with labs completed several days prior to visit Orders: Orders Basic Metabolic Panel 4 Months E78.5 - Hyperlipidemia, unspecified, I10 - Essential (primary) hypertension Liver Panel 4 Months E78.5 - Hyperlipidemia, unspecified, I10 - Essential (primary) hypertension Medications: New lisinopril 30 mg PO DAILY 90 tabs 1RF
[2025-05-13 14:29] VITALS: BP 182/102; PULSE 67; RESP 18; TEMP 36.7; O2SAT 97; BMI 19.1
== END 2025-05-13 15:02 | disposition home or self-care (01) ==
PROVIDERS: PCP Physician Assistant; Visit Provider Physician Assistant
DX: I10 Essential (primary) hypertension (principal); E78.5 Hyperlipidemia, unspecified; Q05.9 Spina bifida, unspecified; M21.372 Foot drop, left foot; F41.9 Anxiety disorder, unspecified

== ENCOUNTER → 2025-05-13 14:18 | Outpatient (BNVA) | payer MEDICARE, SELFPAY | PROVIDERS: PCP Internal Medicine; Visit Provider Physician Assistant | DX: I10 Essential (primary) hypertension (principal); E78.5 Hyperlipidemia, unspecified; M21.372 Foot drop, left foot; F41.9 Anxiety disorder, unspecified; Q05.9 Spina bifida, unspecified; Z79.899 Other long term (current) drug therapy; Z96.653 Presence of artificial knee joint, bilateral; Z96.642 Presence of left artificial hip joint | CPT/HCPCS: 99212 ==

== ENCOUNTER → 2025-06-11 10:53 | Outpatient (BNVA) | payer MEDICARE, SELFPAY | PROVIDERS: PCP Physician Assistant; Visit Provider Physician Assistant | DX: Z01.30 Encounter for examination of blood pressure without abnormal findings (principal) | CPT/HCPCS: 99211 ==